=== PATIENT | male | born 1960 | race Caucasian/White ===

== ENCOUNTER 2017-03-17 18:42 | Emergency (ER) | payer MEDICAID, OTHER ==
--- NOTE | 2017-03-17 19:02 | UC ---
Neck Pain HPI - HPI Summary HPI Summary: 56 year old male presents with complains of spontaneous bruising on his legs with severe neck pain. I will send him to the ER to rule out a platelet disorder. - History of Current Complaint Chief Complaint: UCGeneralIllness Stated Complaint: NECK PAIN, AND BRUISING ON LEGS Time Seen by Provider: 03/17/17 18:53 - Allergies/Home Medications Allergies/Adverse Reactions: Allergies Allergy/AdvReac Type Severity Reaction Status Date / Time No Known Allergies Allergy Verified 01/15/16 13:27 Home Medications: Home Medications Ibuprofen [Advil] 200 mg PO Q6HR 03/17/17 [History Confirmed 03/17/17] PMH/Surg Hx/FS Hx/Imm Hx Previously Healthy: Yes - Surgical History Surgical History: Yes Surgery Procedure, Year, and Place: circumcision 2014-DETACHED RETINA FIXED IN 2013 (pt needs orbit xrays prior to mri to clear surgery/metallic body) - Family History Known Family History: Positive: Cardiac Disease - Social History Alcohol Use: None Substance Use Type: Marijuana Substance Use Comment - Amount & Last Used: every few days Smoking Status (MU): Never Smoked Tobacco Amount Used/How Often: 1/2 PDD X FEW YEARS Have You Smoked in the Last Year: No When Did the Patient Quit Smoking/Using Tobacco: 15 YEARS AGO - Immunization History Most Recent Influenza Vaccination: no Review Of Systems Constitutional: Positive: Negative Skin: Positive: Rash ENT: Positive: Negative Cardiovascular: Positive: Negative Gastrointestinal: Positive: Negative Genitourinary: Positive: Negative Musculoskeletal: Positive: Other: - neck pain Neurological: Positive: Negative All Other Systems Reviewed And Are Negative: Yes Physical Exam Triage Information Reviewed: Yes Vital Signs: Initial Vital Signs Temp 36.8 C 03/17/17 18:51 Pulse 69 03/17/17 18:51 Resp 18 03/17/17 18:51 Pulse Ox 98 03/17/17 18:51 Eye Exam: Normal ENT Exam: Normal Dental Exam: Normal Neck exam: Normal Neck: Positive: 1 Respiratory Exam: Normal Cardiovascular Exam: Normal Abdominal Exam: Normal Musculoskeletal: Positive: Other: - neck pain Neurological Exam: Normal Psychological Exam: Normal Skin: Positive: rashes Neck Pain Course/Dx - Differential Dx/Diagnosis Provider Diagnoses: spontaneous bruising. neck pain Discharge - Discharge Plan Condition: Stable Disposition: ADMITTED TO [facility] Referrals: Kathleen Angulo NP [Primary Care Provider] -
== END 2017-03-17 19:13 | disposition short-term general hospital (02) ==
LOC: UCEAST 18:42
DX: S10.93XA Contusion of unspecified part of neck, initial encounter (principal); M54.2 Cervicalgia; Z87.891 Personal history of nicotine dependence; X58.XXXA Exposure to other specified factors, initial encounter
CPT/HCPCS: 99212; G0463

== ENCOUNTER 2017-03-17 19:28 | Emergency (ER) | payer OTHER ==
[2017-03-17 19:34] VITALS: BP 145/85
[2017-03-17 22:42] LABS: Hematocrit 37 % (42-52); Hemoglobin 12.7 g/dl (14.0-18.0); Mean Corpuscular HGB Conc 34 g/dl (31-36); Mean Corpuscular Hemoglobin 31 pg (27-31); Mean Corpuscular Volume 91 fL (80-94); Mean Platelet Volume 7 um3 (7.4-10.4); Red Blood Count 4.06 10^6/ul (4.0-5.4); Red Cell Distribution Width 14 % (10.5-15)
[2017-03-17 22:58] LABS: Albumin 3.5 g/dL (3.2-5.2); Calcium 8.6 mg/dL (8.6-10.3); EGFR African American 105.5 (>60); Potassium 4.1 mmol/L (3.5-5.0); Total Bilirubin 0.6 mg/dL (0.2-1.0); Total Protein 6.5 g/dL (6.4-8.9)
[2017-03-17] MEDS ORDERED: predniSONE TAB* 20 MG PO ONE (23:07)
--- NOTE | 2017-03-17 23:07 | ED ---
Skin Complaint - HPI Summary HPI Summary: 56M presents with brownish rash that changed to red today. He states that he started to notice all what he thought were bruises across his arms and legs. He was seen at urgent care and sent here for blood work for platelet abnormality. He states upon arriving his rash changed to red splotches. He denies any pain or itching. He denies any fever. He denies any new products or medications. He denies being on blood thinners or every having this rash before. - History of Current Complaint Chief Complaint: EDRashSkinAbscess Time Seen by Provider: 03/17/17 21:14 Stated Complaint: RASH-SENT FROM [facility] Pain Intensity: 2 - Allergy/Home Medications Allergies/Adverse Reactions: Allergies Allergy/AdvReac Type Severity Reaction Status Date / Time No Known Allergies Allergy Verified 01/15/16 13:27 PMH/Surg Hx/FS Hx/Imm Hx Endocrine/Hematology History: Denies: Hx Diabetes, Hx Thyroid Disease Cardiovascular History: Denies: Hx Congestive Heart Failure, Hx Hypertension, Hx Pacemaker/ICD Respiratory History: Denies: Hx Asthma, Hx Chronic Obstructive Pulmonary Disease (COPD) GI History: Reports: Other GI Disorders - present hematemesis abd paian Denies: Hx Ulcer History: Denies: Hx Renal Disease Sensory History: Reports: Hx Contacts or Glasses - GLASSES Denies: Hx Hearing Aid Opthamlomology History: Reports: Hx Contacts or Glasses - GLASSES Neurological History: Reports: Hx Migraine - 20 YEARS AGO Psychiatric History: Denies: Hx Panic Disorder - Surgical History Surgery Procedure, Year, and Place: circumcision 2014-DETACHED RETINA FIXED IN 2013 (pt needs orbit xrays prior to mri to clear surgery/metallic body) Hx Anesthesia Reactions: No Infectious Disease History: No Infectious Disease History: Denies: Hx Clostridium Difficile, Hx Hepatitis, Hx Human Immunodeficiency Virus (HIV), Hx of Known/Suspected MRSA, Hx Shingles, Hx Tuberculosis, Hx Known/ Suspected VRE, Hx Known/Suspected VRSA, History Other Infectious Disease, Traveled Outside the [place] in Last 30 Days - Family History Known Family History: Positive: Cardiac Disease - Social History Alcohol Use: None Substance Use Type: Reports: Marijuana Substance Use Comment - Amount & Last Used: every few days Smoking Status (MU): Never Smoked Tobacco Amount Used/How Often: 1/2 PDD X FEW YEARS Have You Smoked in the Last Year: No Review of Systems Negative: Fever Negative: Chest Pain Negative: Shortness Of Breath Positive: Rash All Other Systems Reviewed And Are Negative: Yes Physical Exam Triage Information Reviewed: Yes Vital Signs On Initial Exam: Initial Vitals Temp Pulse Resp BP Pulse Ox 98.4 F 70 16 147/85 100 03/17/17 19:30 03/17/17 19:30 03/17/17 19:30 03/17/17 19:30 03/17/17 19:30 Vital Signs Reviewed: Yes Appearance: Positive: Well-Appearing Skin: Positive: Other - red macular rash that blanches across arms and legs Head/Face: Positive: Normal Head/Face Inspection Eyes: Positive: Normal, Conjunctiva Clear ENT: Positive: Normal ENT inspection, Pharynx normal, TMs normal Respiratory/Lung Sounds: Positive: Clear to Auscultation, Breath Sounds Present Cardiovascular: Positive: Normal, RRR Diagnostics - Vital Signs Vital Signs Temp Pulse Resp BP Pulse Ox 03/17/17 21:07 98.4 F 03/17/17 19:33 98.4 F 76 16 145/85 100 03/17/17 19:30 98.4 F 70 16 147/85 100 - Laboratory Lab Results: Lab Results 03/17/17 03/17/17 03/17/17 Range/Units 22:30 22:30 22:30 WBC 6.0 (3.5-10.8) 10^3/ul RBC 4.06 (4.0-5.4) 10^6/ul Hgb 12.7 L (14.0-18.0) g/dl Hct 37 L (42-52) % MCV 91 (80-94) fL MCH 31 (27-31) pg MCHC 34 (31-36) g/dl RDW 14 (10.5-15) % Plt Count 234 (150-450) 10^3/ul MPV 7 L (7.4-10.4) um3 Neut % (Auto) 60.3 (38-83) % Lymph % (Auto) 27.4 (25-47) % Ramsey % (Auto) 7.8 (1-9) % Eos % (Auto) 3.8 (0-6) % Baso % (Auto) 0.7 (0-2) % Absolute Neuts (auto) 3.6 (1.5-7.7) 10^3/ul Absolute Lymphs (auto) 1.6 (1.0-4.8) 10^3/ul Absolute Monos (auto) 0.5 (0-0.8) 10^3/ul Absolute Eos (auto) 0.2 (0-0.6) 10^3/ul Absolute Basos (auto) 0 (0-0.2) 10^3/ul Absolute Nucleated RBC 0 10^3/ul Nucleated RBC % 0 INR (Anticoag Therapy) 0.98 (0.89-1.11) APTT 31.1 (26.0-36.3) seconds Sodium 138 (133-145) mmol/L Potassium 4.1 (3.5-5.0) mmol/L Chloride 106 (101-111) mmol/L Carbon Dioxide 28 (22-32) mmol/L Anion Gap 4 (2-11) mmol/L BUN 19 (6-24) mg/dL Creatinine 0.95 (0.67-1.17) mg/dL Est GFR ( Amer) 105.5 (>60) Est GFR (Non-Af Amer) 82.0 (>60) BUN/Creatinine Ratio 20.0 (8-20) Glucose 113 H (70-100) mg/dL Calcium 8.6 (8.6-10.3) mg/dL Total Bilirubin 0.60 (0.2-1.0) mg/dL AST 35 (13-39) U/L ALT 41 (7-52) U/L Alkaline Phosphatase 90 (34-104) U/L Total Protein 6.5 (6.4-8.9) g/dL Albumin 3.5 (3.2-5.2) g/dL Globulin 3.0 (2-4) g/dL Albumin/Globulin Ratio 1.2 (1-3) Result Diagrams: 03/17/17 22:30 03/17/17 22:30 Lab Statement: Any lab studies that have been ordered have been reviewed, and results considered in the medical decision making process. Course/Dx - Course Course Of Treatment: 56M presents with brownish rash that changed to red today. He states that he started to notice all what he thought were bruises across his arms and legs. He was seen at urgent care and sent here for blood work for platelet abnormality. He states upon arriving his rash changed to red splotches. He denies any pain or itching. He denies any fever. He denies any new products or medications. He denies being on blood thinners or every having this rash before. labs normal. rash almost looks vascular vs hives? will try course of steriod and told to follow up with primary. patient understands and agrees with plan. - Differential Diagnoses - Skin Complaint Differential Diagnoses: Cellulitis, Contact Dermatitis, Viral Exanthem - Diagnoses Provider Diagnoses: Rash Discharge - Discharge Plan Condition: Good Disposition: HOME Prescriptions: predniSONE TAB* [Deltasone TAB*] 40 mg PO DAILY #8 tab Patient Education Materials: Acute Rash (ED) Referrals: Kathleen Angulo NP [Primary Care Provider] - Additional Instructions: Take steroid once a day for 5 days Follow up with primary Return to ED if develop any new or worsening symptoms
== END 2017-03-18 | disposition home or self-care (01) ==
LOC: ED 19:28
DX: R21 Rash and other nonspecific skin eruption (principal)
CPT/HCPCS: 36415; 80053; 85025; 85610; 85730; 86617; 86618; 99282; J7512

== ENCOUNTER 2017-04-12 23:10 | Emergency (ER) | payer OTHER ==
[2017-04-12] MEDS ORDERED: Al Hydrox/Mg Hydrox/Simet LIQ* 30 ML UDC PO ONE (23:41)
[2017-04-12] MEDS ORDERED: Lidocaine 2% VISCOUS* 15 ML UDC PO ONE (23:41)
[2017-04-13 01:27] LABS: Hematocrit 39 % (42-52); Hemoglobin 13.4 g/dl (14.0-18.0); Mean Corpuscular HGB Conc 34 g/dl (31-36); Mean Corpuscular Hemoglobin 31 pg (27-31); Mean Corpuscular Volume 91 fL (80-94); Mean Platelet Volume 8 um3 (7.4-10.4); Red Blood Count 4.31 10^6/ul (4.0-5.4); Red Cell Distribution Width 14 % (10.5-15); White Blood Count 6.8 10^3/ul (3.5-10.8)
[2017-04-13 01:42] LABS: Albumin 3.9 g/dL (3.2-5.2); BUN/Creatinine Ratio 18.4 (8-20); Calcium 9.8 mg/dL (8.6-10.3); EGFR African American 116.7 (>60); EGFR Non-African American 90.8 (>60); Globulin 2.9 g/dL (2-4); Potassium 3.8 mmol/L (3.5-5.0); Total Bilirubin 0.7 mg/dL (0.2-1.0); Total Protein 6.8 g/dL (6.4-8.9)
--- NOTE | 2017-04-13 01:51 | ED ---
Nadeen Concepcion Rebecca, scribed for Brice Harvey MD on 04/13/17 at 0057 . Abdominal Pain/Male - HPI Summary HPI Summary: Pt is a 56 y/o M who presents to ED c/o epigastric abd pain. Pain began at 2200 , waking him up from sleep. Pain is currently moderate, ranked 7/10 and characterized as burning with radiation up the esophagus. 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 Sx aggravated by food, alleviated by nothing. Prior to onset of sx, pt had taken a dose of Doxycycline with a cheese sandwich. He is on Doxycycline for Lyme Disease. He reports small, similar reactions to Doxycycline if he had not eaten. - History of Current Complaint Chief Complaint: EDAbdPain Stated Complaint: HEARTBURN Time Seen by Provider: 04/13/17 00:49 Hx Obtained From: Patient Onset/Duration: Lasting Hours, Still Present Severity Currently: Moderate Pain Intensity: 7 Pain Scale Used: 0-10 Numeric Location: Epigastric Radiates: Yes Radiates to: Other - Esophagus Character: Burning Aggravating Factor(s): Food Alleviating Factor(s): Nothing Associated Signs And Symptoms: Positive: Negative - Allergies/Home Medications Allergies/Adverse Reactions: Allergies Allergy/AdvReac Type Severity Reaction Status Date / Time No Known Allergies Allergy Verified 01/15/16 13:27 PMH/Surg Hx/FS Hx/Imm Hx Endocrine/Hematology History: Denies: Hx Diabetes, Hx Thyroid Disease Cardiovascular History: Denies: Hx Congestive Heart Failure, Hx Hypertension, Hx Pacemaker/ICD Respiratory History: Denies: Hx Asthma, Hx Chronic Obstructive Pulmonary Disease (COPD) GI History: Reports: Other GI Disorders - present hematemesis abd paian Denies: Hx Ulcer History: Denies: Hx Renal Disease Sensory History: Reports: Hx Contacts or Glasses - GLASSES Denies: Hx Hearing Aid Opthamlomology History: Reports: Hx Contacts or Glasses - GLASSES Neurological History: Reports: Hx Migraine - 20 YEARS AGO Psychiatric History: Denies: Hx Panic Disorder - Surgical History Surgery Procedure, Year, and Place: circumcision 2014-DETACHED RETINA FIXED IN 2013 (pt needs orbit xrays prior to mri to clear surgery/metallic body) Hx Anesthesia Reactions: No Infectious Disease History: Yes Infectious Disease History: Denies: Hx Clostridium Difficile, Hx Hepatitis, Hx Human Immunodeficiency Virus (HIV), Hx of Known/Suspected MRSA, Hx Shingles, Hx Tuberculosis, Hx Known/ Suspected VRE, Hx Known/Suspected VRSA, History Other Infectious Disease, Traveled Outside the [place] in Last 30 Days - Family History Known Family History: Positive: Cardiac Disease - Social History Alcohol Use: None Substance Use Type: Reports: Marijuana Substance Use Comment - Amount & Last Used: every few days Smoking Status (MU): Never Smoked Tobacco Amount Used/How Often: 1/2 PDD X FEW YEARS Have You Smoked in the Last Year: No Review of Systems Negative: Fever Positive: Abdominal Pain - Epigastric burning with radiation up the esophagus All Other Systems Reviewed And Are Negative: Yes Physical Exam Triage Information Reviewed: Yes Vital Signs On Initial Exam: Initial Vitals Temp 97.1 F 04/12/17 23:16 Vital Signs Reviewed: Yes Appearance: Positive: Well-Appearing, No Pain Distress Skin: Positive: Warm Head/Face: Positive: Normal Head/Face Inspection Eyes: Positive: OLLIE ENT: Positive: Hearing grossly normal Neck: Positive: Supple Respiratory/Lung Sounds: Positive: Clear to Auscultation, Breath Sounds Present Cardiovascular: Positive: RRR Abdomen Description: Positive: Nontender, Soft Bowel Sounds: Positive: Present Musculoskeletal: Positive: Strength/ROM Intact Neurological: Positive: Alert, Oriented to Person Place, Time Psychiatric: Positive: Affect/Mood Appropriate - [place] Coma Scale Coma Scale Total: 15 Diagnostics - Vital Signs Vital Signs Temp Pulse Resp BP Pulse Ox 04/12/17 23:18 97.6 F 59 20 165/103 100 04/12/17 23:16 97.1 F - Laboratory Result Diagrams: 04/13/17 01:14 04/13/17 01:14 Lab Statement: Any lab studies that have been ordered have been reviewed, and results considered in the medical decision making process. - EKG 2333 Cardiac Rate: Bradycardia - 54 bpm EKG Rhythm: Sinus Bradycardia EKG Interpretation: No STEMI Re-Evaluation - Re-Evaluation First Eval Re-Evaluation Time: 00:56 Change: Improved Comment: Sx have improved after medication. Abdominal Pain Fem Course/Dx - Course Assessment/Plan: Pt is a 56 y/o M who presents to ED c/o epigastric abd pain. Pain began at 2200, waking him up from sleep. Pain is currently moderate, ranked 7/10 and characterized as burning with radiation up the esophagus. 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 Sx aggravated by food, alleviated by nothing. Prior to onset of sx , pt had taken a dose of Doxycycline with a cheese sandwich. He is on Doxycycline for Lyme Disease. He reports small, similar reactions to Doxycycline if he had not eaten. EKG reveals no acute findings. WBC of 6.8. In the ED course, pt was administered Maalox and Xylocaine which improved sx. He will be D/C to home with Dx of abdominal pain and a follow up with his PCP. He understands and agrees. Elevated BP noted and advised to f/u with PCP. - Diagnoses Provider Diagnoses: Abdominal pain Discharge - Discharge Plan Condition: Stable Disposition: HOME Patient Education Materials: Acute Abdominal Pain (ED) Referrals: Kathleen Angulo NP [Primary Care Provider] - 3 Days Additional Instructions: Return to the ED for any returning or worsening symptoms. The documentation as recorded by the Nadeen abbasi Rebecca accurately reflects the service I personally performed and the decisions made by , Brice Harvey MD.
[2017-04-13 01:55] VITALS: BP 145/87
== END 2017-04-13 02:05 | disposition home or self-care (01) ==
LOC: ED 23:10
DX: R10.13 Epigastric pain (principal)
CPT/HCPCS: 36415; 80053; 83690; 85025; 93005; 99283; A9270-GY

== ENCOUNTER 2017-09-09 18:28 | Emergency (ER) | payer OTHER ==
[2017-09-09 19:07] VITALS: BP 144/53
--- NOTE | 2017-09-09 21:31 | UC ---
Luz Concepcion Abhishek, scribed for Jh Betts MD on 09/09/17 at 2051 . UC General HPI - HPI Summary HPI Summary: This patient is a 57 year old M presenting to [facility] with a chief complaint of hernia since 2 months. Pt states that he has had bloating and decreased stool production for the past 5 days. The pain is described as a sharp, shooting pain with movement. Pain is stated to be a pressure at rest. Pt states he has been hearing gurgling when pressure is applied to the area of the hernia. The patient rates the pain 10/10 in severity. Symptoms aggravated by coughing and walking. Symptoms alleviated by nothing. Patient denies decreased appetite. - History of Current Complaint Chief Complaint: UCGI Stated Complaint: HERNIATED MUSCLE IN GROIN AND BOWEL MOVEMENTS Time Seen by Provider: 09/09/17 20:06 Hx Obtained From: Patient Onset/Duration: Gradual Onset - hernia - 2 months decreased stool production. Decreased stool production - past 5 days. Timing: Constant Pain Intensity: 10 Character: sharp and shooting pain when aggravated. Aggravating: coughing and walking Alleviating: nothing Associated Signs & Symptoms: Positive: Other - decreased appetite - Allergy/Home Medications Allergies/Adverse Reactions: Allergies Allergy/AdvReac Type Severity Reaction Status Date / Time No Known Allergies Allergy Verified 09/09/17 19:07 Home Medications: Home Medications NK [No Home Medications Reported] 09/09/17 [History Confirmed 09/09/17] PMH/Surg Hx/FS Hx/Imm Hx Cardiovascular History: Other - hypotension. Negative cardiac disease. Other Cardiovascular History: . - Surgical History Surgical History: Yes Surgery Procedure, Year, and Place: circumcision 2014-DETACHED RETINA FIXED IN 2013 (pt needs orbit xrays prior to mri to clear surgery/metallic body) - Family History Known Family History: Positive: Hypertension, Other - colon cancer - Social History Alcohol Use: None Substance Use Type: None Substance Use Comment - Amount & Last Used: every few days Smoking Status (MU): Never Smoked Tobacco Amount Used/How Often: 1/2 PDD X FEW YEARS Have You Smoked in the Last Year: No When Did the Patient Quit Smoking/Using Tobacco: 15 YEARS AGO - Immunization History Most Recent Influenza Vaccination: no Review of Systems Constitutional: Negative Skin: Negative Eyes: Negative ENT: Negative Respiratory: Negative Cardiovascular: Negative Gastrointestinal: Other - bloating and decreased stool production. Negative decreased appetite. Genitourinary: Negative Motor: Negative Neurovascular: Negative Musculoskeletal: Other: - hernia in the left inguinal region Neurological: Negative Psychological: Negative All Other Systems Reviewed And Are Negative: Yes Physical Exam Triage Information Reviewed: Yes Vital Signs: Initial Vital Signs Temp 98.1 F 09/09/17 19:00 Pulse 75 09/09/17 19:00 Resp 18 09/09/17 19:00 BP 144/53 09/09/17 19:00 Pulse Ox 97 09/09/17 19:00 - Additional Comments General: well-appearing, no pain distress Skin: warm, color reflects adequate perfusion, dry Head: normal Eyes: EOMI, OLLIE ENT: normal Neck: supple, nontender Respiratory: CTA, breath sounds present Cardiovascular: RRR Abdomen: soft, nontender Bowel: present Musculoskeletal: normal, strength/ROM intact, Left inguinal region, no hernia palpated at this time Neurological: normal, sensory/motor intact, A&O x3 Psychological: affect/mood appropriate Course/Dx - Course Course Of Treatment: THE LEFT INGUINAL HERNIA IS NOT PALPABLE ON EXAM; IT IS REDUCED AT THIS TIME. POSITIVE BOWEL SOUNDS, PATIENT IS PASSING STOOL AND FLAUS , NO ABDOMINAL PAIN AT THIS TIME. WE DISCUSSED HAVING A CT ABD/PELVIS WITH BOTH IV AND PO CONTRAST FOR OPTIMAL FURTHER EVALUATION OF HIS CONDITION. THIS IS NOT AVAILABLE HERE AT THE CLINIC AT THIS TIME. PATIENT DECLINED GOING TO THE ED AT THIS TIME; HE PLANNS ON FOLLOWING UP WITH HIS PMD FOR THIS. HE WILL GO TO THE ED RIGHT AWAY WITH ANY WORSENING OF HIS CONDITION. - Differential Dx - Multi-Symptom Provider Diagnoses: abdominal pain,. left inguinal hernia Discharge - Discharge Plan Condition: Stable Disposition: HOME Patient Education Materials: Inguinal Hernia (ED), Abdominal Pain (ED) Referrals: [facility] [Provider Group] Adis Serrano MD [Medical Doctor] - Kathleen Angulo NP [Primary Care Provider] - Additional Instructions: FOLLOW UP WITH YOUR PRIMARY CARE DOCTOR AND SURGERY. GO TO THE EMERGENCY DEPARTMENT FOR ANY WORSENING OF YOUR CONDITION; PAIN, VOMITING, YOU ARE NOT PASSING STOOL OR FLATUS, FEVER OR QUESTIONS OR CONCERNS. The documentation as recorded by the Luz abbasi Abhishek accurately reflects the service I personally performed and the decisions made by , Jh Betts MD.
== END 2017-09-09 21:02 | disposition home or self-care (01) ==
LOC: UCEAST 18:28
DX: R10.32 Left lower quadrant pain (principal); K40.90 Unilateral inguinal hernia, without obstruction or gangrene, not specified as recurrent; I95.9 Hypotension, unspecified; Z87.891 Personal history of nicotine dependence
CPT/HCPCS: 99211; G0463

== ENCOUNTER 2017-10-24 09:33 | Day surgery (SDC) | payer OTHER ==
[~2017-10-24 09:33] MED LIST: Buffered Lidocaine 0.9% SYRIN* 5 ML/SYR SYRINGE INTRADERM ONE; Famotidine IV* 10 MG/ML 2 ML (20 mg) IV ONE
[2017-10-24] MEDS ORDERED: Buffered Lidocaine 0.9% SYRIN* 5 ML/SYR SYRINGE ONE (09:35)
[2017-10-24] MEDS ORDERED: ceFAZolin 2 GM in 100 MLS NS (*) BAG IVPB ONE (09:35)
[2017-10-24] MEDS ORDERED: ceFAZolin 1 GM in Dextrose (*) 1 GM/50 ML BAG IVPB ONE (09:35)
[2017-10-24] MEDS ORDERED: Ketorolac INJ* 30 MG/ML 1 ML VIAL ONE ×2 (09:35→10:36)
[2017-10-24] MEDS ORDERED: Famotidine IV* 10 MG/ML 2 ML (20 mg) ONE (09:35)
[2017-10-24] MEDS ORDERED: Propofol* 10 MG/ML 20 ML BTL IV PUSH ONE ×2 (10:36→12:52)
[2017-10-24] MEDS ORDERED: Midazolam* 1 MG/ML 5 ML VIAL (5 MG) ONE (10:36)
[2017-10-24] MEDS ORDERED: Ondansetron INJ* 2 MG/ML VIAL ONE (10:36)
[2017-10-24] MEDS ORDERED: fentaNYL* 50 MCG/ML 2 ML VIAL (100 MCG VIAL) ONE (10:36)
[2017-10-24] MEDS ORDERED: Naloxone* 0.4 MG/ML 1 ML VIAL IV PRN (11:23)
[2017-10-24] MEDS ORDERED: oxyCODONE TAB* 5 MG TAB PO PRN (11:23)
[2017-10-24] MEDS ORDERED: DiMENhydriNATE IV* 50 MG/ML VIAL IV PUSH PRN (11:23)
[2017-10-24] MEDS ORDERED: HYDROmorphone INJ* 1 MG/ML CARPUJECT SYRINGE IV PRN (11:23)
[2017-10-24] MEDS ORDERED: Acetaminophen TAB* 325 MG PO PRN (11:23)
[2017-10-24] MEDS ORDERED: Bupivacaine 0.5% SDV PF* 10-30ML VIAL ONE (11:42)
[2017-10-24] MEDS ORDERED: Lidocaine 1% MPF wEPI 200,000* 30 ML SDV ONE (11:42)
[2017-10-24] MEDS ORDERED: Lidocaine 2% PF * 5 ML VIAL ONE (12:23)
[2017-10-24 14:07] VITALS: BP 119/78
--- NOTE | 2017-10-25 06:39 | OP ---
CC: Kathleen Curry NP * DATE OF OPERATION: 10/24/17 - SDS DATE OF : 60 SURGEON: Brice White MD SLAT BASKET MAKER: Macie Escalante NP ANESTHESIOLOGIST: Radhika Stewart MD ANESTHESIA: LMAC anesthesia. PRE-OP DIAGNOSIS: Left inguinal hernia. POST-OP DIAGNOSIS: Left inguinal hernia. OPERATIVE PROCEDURE: Open repair of left inguinal hernia with mesh. DESCRIPTION OF PROCEDURE: The patient was supine on the operative table. After adequate intravenous sedation, compression stockings, Rasta Hugger warmer, and intravenous antibiotics, the left groin was clipped and draped with antiseptic, draped in sterile fashion. Local infiltrative anesthesia was administered. An approximately 3-inch incision was created and carried down to the tissue layers to the external oblique, which was opened in the direction of its fibers. Cord structures were encircled, tended upwards. There was an indirect space hernia, which was dissected free and reduced and a cone mesh plug was placed into the internal ring, sutured there with 2-0 Vicryl. Second piece of mesh was placed over the inguinal floor, sutured at the tubercle at the inguinal ligament at the transverse abdominis and the tails were split, brought around the cord structures and tacked down laterally. External oblique was closed over top with 2-0 Vicryl, Davian's with 3-0 Vicryl, skin with 4-0 Prolene followed by sterile dressing. He tolerated the procedure well, was awakened and brought to Recovery in good condition. No complications. No drains. No pathologic specimens. Sponge and instrument counts were correct. Estimated blood loss was 10 mL. [id number]/[facility] #: [id number] [facility]
== END 2017-10-24 14:30 | disposition home or self-care (01) ==
LOC: OR 09:33
PROVIDERS: ATTEND Surgery
DX: K40.90 Unilateral inguinal hernia, without obstruction or gangrene, not specified as recurrent (principal); J45.909 Unspecified asthma, uncomplicated; M19.90 Unspecified osteoarthritis, unspecified site
CPT/HCPCS: C1781; J0690; J1885; J2001; J2250; J2405; J2704; J3010

== ENCOUNTER 2017-10-27 13:26 | Emergency (ER) | payer OTHER ==
--- OUTSIDE RECORDS SUMMARY | 2017-10-27 13:48 | XMS REPORT ---
:1960 External Reference #:[id number] Author Organization [facility] Address [address] [place] [id number] Phone [phone] Care Team Providers Name Role Phone Jeni Leonard NP Care Team Information Speed Winder Unavailable Payers Type Date Identification Numbers Payment Provider Subscriber Medicaid Expires: Policy Number: [id number] Medicaid/Computer Liz Abdi Donna 2011 Science Group Name: 1 1 [address] PayID: [id number] [place] [address] Commercial Effective: Policy Number: [facility] Abdi Donna 2011 [id number] Med Expires: 2015 PayID: [id number] [place] [address] Medigap Part B Expires: Policy Number: Medicaid/Computer Liz Abdi Donna 2015 [id number] Science Group Name: 1 1 [address] PayID: [id number] [place] [address] Commercial Effective: Policy Number: [facility] Abdi Donna 2015 [id number] Med Expires: 2016 PayID: [id number] [address] [place] [address] Medigap Part B Effective: Policy Number: Medicaid/Computer Liz S Donna 2016 [id number] Science Expires: 2016 Group Name: 1 1 [address] PayID: [id number] [place] [address] Commercial Effective: Policy Number: [facility] Abdi Donna 2016 [id number] PayID: [id number] [address] [place] [address] Problems Date Description Provider Status Onset: 09/11/2011 Essential hypertension Peyton Cuevas M.D. Active Family History Date Family Member(s) Problem(s) Comments : (age 55 Father due to COPD Years) Onset: (age 81 Mother Cancer, Colon Years) Onset: (age 87 Mother Stroke Years) Onset: (age 88 Mother Hip Fractures B Years) Siblings 2 First Brother CAD stent placed age 59 carotid endarterectomy age 54 First Brother Hypercholesterolemia First Sister Hypercholesterolemia Social History Type Date Description Comments Marital Status Significant Other Lives With Female Partner Lives With Daughter Pets 2 cats Smoking Patient has never smoked Allergies, Adverse Reactions, Alerts Date Description Reaction Status Severity Comments 09/11/2011 NKDA active Medications Medication Date Status Form Strength Qnty SIG Indications Ordering Provider Ventolin HFA 10/17 Active Aerosol 108(90Bas 1unit 2 puffs J45.998 e) s four times Shortle, mcg/Act a day as [employer] needed wheezing Doxycycline 03/20 Hx Capsules 100mg 56cap 1 tab by A69.20 Kathleen Hyclate s mouth twice Kev, - a day x 28 [employer] No Active 12/04 Hx Unknown Medications /2016 - 03/20 Ciprodex 08/27 Hx Suspension 0.3-0.1% 7.500 4 drops ml into right Kev, - and left [employer] 12/04 ear twice day x 5 days Dulera 01/23 Hx Aerosol 100-5mcg/ 2 puff Act twice a day Kev, - [employer] 12/04 Meloxicam 03/22 Hx Tablets 7.5mg 60tab 1 - 2 by M25.18 Kathleen s mouth daily Kev, - for back [employer] 12/04 pain, take with food Albenza 02/10 Hx Tablets 200mg 4tabs 2 by mouth Shawnti /2014 x 1 dose Betty Thomas, - with food, [employer] 03/23 repeat in weeks as needed as directed Cyclobenzaprine 07/22 Hx Tablets 5mg 60tab 1-2 by 599.89 Kathleen HCL s mouth three Kev, - times a day [employer] 01/12 for muscle /2015 spasm, may cause drowsiness Prednisone 07/13 Hx Tablets 20mg 14tab take 2 tabs 845.09 s by mouth Kev, - every day x [employer] 01/12 7 days Montelukast 01/22 Hx Tablets 10mg 30tab 1 tablet by J45.998 Kathleen Sodium s mouth at [facility], - bedtime [employer] 12/04 Fluticasone 01/22 Hx Suspension 50mcg/Act 16gm 2 sprays J45.998 Kathleen Propionate each Kev, - nostril [employer] 12/04 Albenza 12/29 Hx Tablets 200mg 4tabs 2 po x 1, December repeat Kev, - in 2 weeks. [employer] 01/22 Amoxicillin 08/28 Hx Tablets 875mg 20tab 1 tablet 382.9 s bid x 10 Kev, - days [employer] 01/22 Ciprofloxacin 07/23 Hx Tablets 250mg 10tab 1 po bid 599.0 Shawnti HCL s for urine Betty Thomas, - infection [employer] 01/22 Ventolin HFA 01/27 Hx Aerosol 108(90Bas 1unit 2 puffs J45.998 e) s four times Kev, - mcg/Act a day as [employer] 12/04 needed wheezing Albenza 03/31 Hx Tablets 200mg 4tabs 2 po x 1 128.9 wnt dose with Betty Thomas, - food, [employer] 01/22 repeat in weeks prn as directed Mebendazole 03/28 Hx Chewtabs 100mg 2unit one po now 128.9 Shawnti s and repeat Betty Thomas, - in 2 weeks [employer] 03/31 Ventolin HFA 01/10 Hx Aerosol 108(90Bas 1unit 2 puffs qid 493.90 Peyton /2012 e) mcg/ac s prn Brando - toya Cuevas, 01/27 Tj /2012 Pulmicort 01/10 Hx Aerosol 90mcg/Act 1unit 2 puff J45.998 Kathleen Sergeyer /2011 s twice a day Kev, - during [employer] 12/04 allergy 2017 season Azithromycin 01/10 Hx Tablets 250mg 6tabs 2 po qd x 1 493.90 Peyton /2012 day, then 1 K.W. - po qd Mason, 01/22 M.DGian /2013 Immunizations CPT Code Status Date Vaccine Lot # [id number] Given 01/11/2012 Pneumovax 23 (PPSV23) 65+ years or high risk 2 to [id number] 64 year old [address] Given 08/31/2011 Tdap (Adacel) Vital Signs Date Vital Result Comment 10/17/2017 Weight 251.00 lb Weight in kg's 113.854 BP Systolic 142 mmHg BP Diastolic 92 mmHg Heart Rate 63 /min Body Temperature 96.5 F Respiratory Rate 18 /min O2 % BldC Oximetry 96 % 09/25/2017 Weight 252.00 lb Weight in kg's 114.307 BP Systolic 124 mmHg BP Diastolic 74 mmHg Heart Rate 68 /min Body Temperature 96.9 F Respiratory Rate 16 /min O2 % BldC Oximetry 98 % 03/20/2017 Weight 258.00 lb Weight in kg's 117.029 BP Systolic 120 mmHg BP Diastolic 80 mmHg Heart Rate 64 /min Body Temperature 98.6 F Respiratory Rate 14 /min 12/04/2016 Weight 245.00 lb Weight in kg's 111.132 BP Systolic 140 mmHg BP Diastolic 88 mmHg Heart Rate 81 /min Body Temperature 97.7 F Respiratory Rate 16 /min O2 % BldC Oximetry 96 % 10/09/2016 Weight 252.00 lb Weight in kg's 114.307 BP Systolic 130 mmHg BP Diastolic 80 mmHg Heart Rate 64 /min Body Temperature 97.3 F Respiratory Rate 12 /min 09/10/2016 Weight 252.00 lb Weight in kg's 114.307 BP Systolic 128 mmHg BP Diastolic 76 mmHg Heart Rate 80 /min Body Temperature 97.8 F Respiratory Rate 16 /min O2 % BldC Oximetry 98 % 08/27/2016 Weight 255.00 lb Weight in kg's 115.668 BP Systolic 132 mmHg BP Diastolic 86 mmHg Heart Rate 51 /min Body Temperature 97.5 F Respiratory Rate 16 /min O2 % BldC Oximetry 98 % 01/24/2016 Weight 246.00 lb Weight in kg's 111.586 BP Systolic 116 mmHg BP Diastolic 76 mmHg Heart Rate 90 /min Body Temperature 98.0 F Height 73 inches 6'1" BMI (Body Mass Index) 32.5 kg/m2 O2 % BldC Oximetry 97 % 11/23/2015 Weight 245.00 lb with boots Weight in kg's 111.132 BP Systolic 126 mmHg BP Diastolic 80 mmHg Heart Rate 74 /min 03/22/2015 Weight 244.00 lb Weight in kg's 110.678 BP Systolic 114 mmHg BP Diastolic 70 mmHg Heart Rate 76 /min 02/18/2015 Weight 238.00 lb Weight in kg's 107.957 BP Systolic 132 mmHg BP Diastolic 74 mmHg Heart Rate 68 /min Body Temperature 98.1 F 01/12/2015 Weight 240.00 lb Weight in kg's 108.864 BP Systolic 122 mmHg BP Diastolic 80 mmHg Heart Rate 68 /min Body Temperature 97.3 F O2 % BldC Oximetry 96 % 07/22/2014 Weight 278.00 lb Weight in kg's 126.101 BP Systolic 144 mmHg BP Diastolic 88 mmHg Heart Rate 100 /min Body Temperature 97.4 F 07/13/2014 Weight 271.00 lb Weight in kg's 122.926 BP Systolic 136 mmHg BP Diastolic 84 mmHg Heart Rate 67 /min Body Temperature 97.1 F O2 % BldC Oximetry 98 % 06/25/2014 Weight 275.00 lb Weight in kg's 124.740 BP Systolic 132 mmHg BP Diastolic 82 mmHg Heart Rate 88 /min Body Temperature 96.8 F O2 % BldC Oximetry 97 % 01/22/2014 Weight 271.00 lb Weight in kg's 122.926 BP Systolic 132 mmHg BP Diastolic 96 mmHg Heart Rate 67 /min Body Temperature 96.6 F O2 % BldC Oximetry 96 % 08/28/2013 Weight 273.00 lb Weight in kg's 123.833 BP Systolic 110 mmHg BP Diastolic 70 mmHg Heart Rate 76 /min 07/23/2013 Weight 271.00 lb Weight in kg's 122.926 BP Systolic 136 mmHg BP Diastolic 90 mmHg Heart Rate 76 /min Body Temperature 97.7 F Height 73 inches 6'1" BMI (Body Mass Index) 35.8 kg/m2 08/22/2012 Weight 262.00 lb Weight in kg's 118.843 BP Systolic 140 mmHg BP Diastolic 90 mmHg Heart Rate 84 /min 03/28/2012 Weight 261.00 lb Weight in kg's 118.390 BP Systolic 130 mmHg BP Diastolic 90 mmHg Heart Rate 108 /min Body Temperature 98.3 F 01/11/2012 Weight 260.00 lb Weight in kg's 117.936 BP Systolic 150 mmHg BP Diastolic 90 mmHg Heart Rate 84 /min Body Temperature 98.1 F 12/07/2011 Weight 262.00 lb Weight in kg's 118.843 BP Systolic 124 mmHg BP Diastolic 78 mmHg Heart Rate 72 /min Body Temperature 98.2 F 09/11/2011 Weight 260.00 lb Weight in kg's 117.936 BP Systolic 140 mmHg BP Diastolic 80 mmHg Heart Rate 80 /min Body Temperature 97.8 F Height 73.5 inches 6'1.50" BMI (Body Mass Index) 33.8 kg/m2 Results Test Date Test Result H/L Range Note Order 10/17/2017 Spirometry Simple <pending> Order 10/17/2017 Spirometry Simple <pending> Comp Metabolic Panel 04/13/2017 Sodium 135 mmol/L 133-145 Potassium 3.8 mmol/L 3.5-5.0 Chloride 106 mmol/L 101-111 Co2 Carbon Dioxide 26 mmol/L 22-32 Anion Gap 3 mmol/L 2-11 Glucose 105 mg/dL High 70-100 Blood Urea Nitrogen 16 mg/dL 6-24 Creatinine 0.87 mg/dL 0.67-1.17 BUN/Creatinine Ratio 18.4 8-20 Calcium 9.8 mg/dL 8.6-10.3 Total Protein 6.8 g/dL 6.4-8.9 Albumin 3.9 g/dL 3.2-5.2 Globulin 2.9 g/dL 2-4 Albumin/Globulin Ratio 1.3 1-3 Total Bilirubin 0.70 mg/dL 0.2-1.0 Alkaline Phosphatase 72 U/L 34-104 Alt 23 U/L 7-52 Ast 26 U/L 13-39 Egfr Non- 90.8 >60 Egfr 116.7 >60 1 Laboratory test finding 04/13/2017 Lipase 17 U/L 11.0-82.0 CBC Auto Diff 04/13/2017 White Blood Count 6.8 10^3/uL 3.5-10.8 Red Blood Count 4.31 10^6/uL 4.0-5.4 Hemoglobin 13.4 g/dL Low 14.0-18.0 Hematocrit 39 % Low 42-52 Mean Corpuscular Volume 91 fL 80-94 Mean Corpuscular Hemoglobin 31 pg 27-31 Mean Corpuscular HGB Conc 34 g/dL 31-36 Red Cell Distribution Width 14 % 10.5-15 Platelet Count 203 10^3/uL 150-450 Mean Platelet Volume 8 um3 7.4-10.4 Abs Neutrophils 3.8 10^3/uL 1.5-7.7 Abs Lymphocytes 2.1 10^3/uL 1.0-4.8 Abs Monocytes 0.6 10^3/uL 0-0.8 Abs Eosinophils 0.2 10^3/uL 0-0.6 Abs Basophils 0 10^3/uL 0-0.2 Abs Nucleated RBC 0 10^3/uL Granulocyte % 55.9 % 38-83 Lymphocyte % 31.6 % 25-47 Monocyte % 8.7 % 1-9 Eosinophil % 3.2 % 0-6 Basophil % 0.6 % 0-2 Nucleated Red Blood Cells % 0 Lyme Western Blot 03/17/2017 Lyme Disease IgG Ab WB Negative Negative Lyme Disease IgG Bands Present p41, p23, kDa Lyme Disease IgM Ab WB Positive Negative Lyme Disease IgM Bands Present p41, p39, p23, kDa Lyme Disease Interpretation See Comment 2 CBC Auto Diff 03/17/2017 White Blood Count 6.0 10^3/uL 3.5-10.8 Red Blood Count 4.06 10^6/uL 4.0-5.4 Hemoglobin 12.7 g/dL Low 14.0-18.0 Hematocrit 37 % Low 42-52 Mean Corpuscular Volume 91 fL 80-94 Mean Corpuscular Hemoglobin 31 pg 27-31 Mean Corpuscular HGB Conc 34 g/dL 31-36 Red Cell Distribution Width 14 % 10.5-15 Platelet Count 234 10^3/uL 150-450 Mean Platelet Volume 7 um3 Low 7.4-10.4 Abs Neutrophils 3.6 10^3/uL 1.5-7.7 Abs Lymphocytes 1.6 10^3/uL 1.0-4.8 Abs Monocytes 0.5 10^3/uL 0-0.8 Abs Eosinophils 0.2 10^3/uL 0-0.6 Abs Basophils 0 10^3/uL 0-0.2 Abs Nucleated RBC 0 10^3/uL Granulocyte % 60.3 % 38-83 Lymphocyte % 27.4 % 25-47 Monocyte % 7.8 % 1-9 Eosinophil % 3.8 % 0-6 Basophil % 0.7 % 0-2 Nucleated Red Blood Cells % 0 Inr/Protime 03/17/2017 Inr 0.98 0.89-1.11 Laboratory test finding 03/17/2017 Partial Thrombo Time 31.1 seconds 26.0 -36.3 PTT Laboratory test finding 03/17/2017 Lyme Disease Serology Positive Negative 3 Comp Metabolic Panel 03/17/2017 Sodium 138 mmol/L 133-145 Potassium 4.1 mmol/L 3.5-5.0 Chloride 106 mmol/L 101-111 Co2 Carbon Dioxide 28 mmol/L 22-32 Anion Gap 4 mmol/L 2-11 Glucose 113 mg/dL High 70-100 Blood Urea Nitrogen 19 mg/dL 6-24 Creatinine 0.95 mg/dL 0.67-1.17 BUN/Creatinine Ratio 20.0 8-20 Calcium 8.6 mg/dL 8.6-10.3 Total Protein 6.5 g/dL 6.4-8.9 Albumin 3.5 g/dL 3.2-5.2 Globulin 3.0 g/dL 2-4 Albumin/Globulin Ratio 1.2 1-3 Total Bilirubin 0.60 mg/dL 0.2-1.0 Alkaline Phosphatase 90 U/L 34-104 Alt 41 U/L 7-52 Ast 35 U/L 13-39 Egfr Non- 82.0 >60 Egfr 105.5 >60 4 Herpes Simplex Type 10/09/2016 Herpes Simplex Virus I Positive Negative 1&2 Igg IgG AB Herpes Simplex Virus II IgG AB Negative Negative 5 Laboratory test 10/09/2016 Syphillis Igg W/Reflex Nonreactive Nonreactive 6 finding RPR HIV 1/2 AB Evaluation 10/09/2016 HIV 1 2 Antibody Nonreactive Nonreactive 7 GC/Chlamydia Amplified 10/09/2016 Chlamydia trachomatis Negative Negative Rna Rna Neisseria gonorrhoeae (GC) Rna Negative Negative Urine DIP 09/10/2016 Leukocytes ++ Neg Urine Nitrites NEG Neg Urobilinogen NORM Norm Total Protein, Urine NEG Neg Urine pH 5 5-6 Urine Blood NEG Neg Specific Bowie 1.015 1.01-1.02 Urine Ketones NEG Neg Urine Bilirubin NEG Neg Urine Glucose NORM Norm Laboratory test finding 09/10/2016 Glucose By Moniter 116 High 78-110 Laboratory test finding 07/18/2015 Troponin I 0.00 ng/mL <0.03 8 CBC Auto Diff 07/18/2015 White Blood Count 5.5 10^3/uL 4.8-10.8 Red Blood Count 4.58 10^6/uL 4.0-5.4 Hemoglobin 14.4 g/dL 14.0-18.0 Hematocrit 43 % 42-52 Mean Corpuscular Volume 94 fL 80-94 Mean Corpuscular Hemoglobin 31 pg 27-31 Mean Corpuscular HGB Conc 33 g/dL 31-36 Red Cell Distribution Width 14 % 10.5-15 Platelet Count 208 10^3/uL 150-450 Mean Platelet Volume 8 um3 7.4-10.4 Abs Neutrophils 2.6 10^3/uL 1.5-7.7 Abs Lymphocytes 2.1 10^3/uL 1.0-4.8 Abs Monocytes 0.4 10^3/uL 0-0.8 Abs Eosinophils 0.3 10^3/uL 0-0.6 Abs Basophils 0 10^3/uL 0-0.2 Abs Nucleated RBC 0 10^3/uL Granulocyte % 47.5 % 38-83 Lymphocyte % 37.9 % 25-47 Monocyte % 7.8 % 1-9 Eosinophil % 6.0 % 0-6 Basophil % 0.8 % 0-2 Nucleated Red Blood Cells % 0.1 Laboratory test finding 07/18/2015 Lactic Acid 1.3 mmol/L 0.5-2.2 Comp Metabolic Panel 07/18/2015 Sodium 139 mmol/L 133-145 Potassium 4.0 mmol/L 3.5-5.0 Chloride 107 mmol/L 101-111 Co2 Carbon Dioxide 27 mmol/L 22-32 Anion Gap 5 mmol/L 2-11 Glucose 115 mg/dL High 70-100 Blood Urea Nitrogen 12 mg/dL 6-24 Creatinine 0.86 mg/dL 0.67-1.17 BUN/Creatinine Ratio 14.0 8-20 Calcium 9.2 mg/dL 8.6-10.3 Total Protein 6.7 g/dL 6.4-8.9 Albumin 4.1 g/dL 3.2-5.2 Globulin 2.6 g/dL 2-4 Albumin/Globulin Ratio 1.6 1-3 Total Bilirubin 0.50 mg/dL 0.2-1.0 Alkaline Phosphatase 72 U/L 34-104 Alt 17 U/L 7-52 Ast 22 U/L 13-39 Egfr Non- 92.3 >60 Egfr 118.7 >60 9 Laboratory test finding 07/18/2015 Magnesium 1.9 mg/dL 1.9-2.7 Troponin I 0.00 ng/mL <0.03 10 D Dimer Quantitative < 200 ng/mL Less Than 230 11 Laboratory test finding 01/12/2015 TSH (Thyroid Stim Horm) 0.92 ?IU/mL 0.34-5.60 Laboratory test finding 08/10/2014 PSA Screening 1.268 ng/mL 0-4.0 12 Urine DIP 07/22/2014 Specific Bowie 1.01 1.01-1.02 Urine pH 6 5-6 Leukocytes + Neg Urine Nitrites NEG Neg Total Protein, Urine NEG Neg Urine Glucose NORM Norm Urine Ketones NEG Neg Urobilinogen NORM Norm Urine Bilirubin NEG Neg Urine Blood NEG Neg Comp Metabolic Panel 07/13/2014 Sodium 138 mmol/L 133-145 Potassium 4.2 mmol/L 3.5-5.0 13 Chloride 105 mmol/L 101-111 Co2 Carbon Dioxide 26 mmol/L 22-32 Anion Gap 7 mmol/L 2-11 Glucose 100 mg/dL 70-100 Blood Urea Nitrogen 14 mg/dL 6-24 Creatinine 0.85 mg/dL 0.67-1.17 BUN/Creatinine Ratio 16.5 8-20 Calcium 9.3 mg/dL 8.6-10.3 Total Protein 7.0 g/dL 6.4-8.9 Albumin 4.4 g/dL 3.2-5.2 Globulin 2.6 g/dL 2-4 Albumin/Globulin Ratio 1.7 1-3 Total Bilirubin 0.70 mg/dL 0.2-1.0 Alkaline Phosphatase 76 U/L 34-104 Alt 17 U/L 7-52 Ast 20 U/L 13-39 Egfr Non- 93.9 >60 Egfr 120.8 >60 14 Laboratory test finding 07/13/2014 Uric Acid 6.1 mg/dL 4.4-7.6 CBC Auto Diff 07/13/2014 White Blood Count 7.0 10^3/uL 4.8-10.8 Red Blood Count 4.94 10^6/uL 4.0-5.4 Hemoglobin 15.2 g/dL 14.0-18.0 Hematocrit 45 % 42-52 Mean Corpuscular Volume 91 fL 80-94 Mean Corpuscular Hemoglobin 31 pg 27-31 Mean Corpuscular HGB Conc 34 g/dL 31-36 Red Cell Distribution Width 14 % 10.5-15 Platelet Count 233 10^3/uL 150-450 Mean Platelet Volume 8 um3 7.4-10.4 Abs Neutrophils 3.9 10^3/uL 1.5-7.7 Abs Lymphocytes 2.3 10^3/uL 1.0-4.8 Abs Monocytes 0.5 10^3/uL 0-0.8 Abs Eosinophils 0.3 10^3/uL 0-0.6 Abs Basophils 0 10^3/uL 0-0.2 Abs Nucleated RBC 0 10^3/uL Granulocyte % 55.9 % 38-83 Lymphocyte % 32.4 % 25-47 Monocyte % 6.9 % 1-9 Eosinophil % 4.3 % 0-6 Basophil % 0.5 % 0-2 Nucleated Red Blood Cells % 0.1 Urine DIP 07/23/2013 Leukocytes + Neg Urine Nitrites neg Neg Urine pH 5 5-6 Total Protein, Urine neg Neg Urine Glucose norm Norm Urine Ketones neg Neg Urobilinogen norm Norm Urine Bilirubin neg Neg Urine Blood trace Neg Specific Bowie 1.02 1.01-1.02 Urine Culture And Sensitivities 07/23/2013 Urine Culture (SEE NOTE) 15 Urine DIP 08/22/2012 Leukocytes + Neg Urine Nitrites NEG Neg Urine pH 5 5-6 Total Protein, Urine NEG Neg Urine Glucose NORM Norm Urine Ketones NEG Neg Urobilinogen NORM Norm Urine Bilirubin NEG Neg Urine Blood NEG Neg Specific Bowie N/A Low 1.01-1.02 Urine Culture And 08/22/2012 Urine Culture (SEE NOTE) 16 Sensitivities GC/Chlamydia Amplified Rna 08/22/2012 GC/Chlamydia Rna (SEE NOTE) 17 Surgical Pathology 11/06/2011 Surgical Pathology 18 <SEE NOTE> Urine DIP 09/11/2011 Leukocytes NEG Neg Urine Nitrites NEG Neg Urine pH 7 High 5-6 Total Protein, Urine TRACE Neg Urine Glucose NORM Norm Urine Ketones NEG Neg Urobilinogen NORM Norm Urine Bilirubin NG Neg Urine Blood NEG Neg Specific Bowie NA Low 1.01-1.02 1 Because ethnic data is not always readily available, this report includes an eGFR for both -Americans and non- Americans. The National Kidney Disease Education Program (NKDEP) does not endorse the use of the MDRD equation for patients that are not between the ages of 18 and 70, are , have extremes of body size, muscle mass, or nutritional status, or are non- or non-. According to the National Kidney Foundation, irrespective of diagnosis, the stage of the disease is based on the level of kidney function: Stage Description GFR(mL/min/1.73 m(2)) 1 Kidney damage with normal or decreased GFR 90 2 Kidney damage with mild decrease in GFR 60-89 3 Moderate decrease in GFR 30-59 4 Severe decrease in GFR 15-29 5 Kidney failure <15 (or dialysis) 2 Consistent with early infection with Borrelia burgdorferi. A new serum specimen should be submitted in 14-21 days to demonstrate seroconversion of IgG. IgM blot criteria is of diagnostic utility only during the first 4 weeks of early Lyme disease. ADDITIONAL INFORMATION CDC criteria require >=5 bands for IgG or >=2 bands for IgM for the Immunoblot to be considered positive. Bands (e.g.,p41) may be detected in patients without Lyme disease, and patterns not meeting the CDC criteria should be interpreted with caution. Immunoblot should be ordered only on specimens that are positive or equivocal by a FDA-licensed Lyme disease antibody screening test (e.g., EIA). Test Performed by: [place] [address] 3 Not diagnostic. Supplemental testing ordered by reflex. Test Performed by: [place] [address] 4 Because ethnic data is not always readily available, this report includes an eGFR for both -Americans and non- Americans. The National Kidney Disease Education Program (NKDEP) does not endorse the use of the MDRD equation for patients that are not between the ages of 18 and 70, are , have extremes of body size, muscle mass, or nutritional status, or are non- or non-. According to the National Kidney Foundation, irrespective of diagnosis, the stage of the disease is based on the level of kidney function: Stage Description GFR(mL/min/1.73 m(2)) 1 Kidney damage with normal or decreased GFR 90 2 Kidney damage with mild decrease in GFR 60-89 3 Moderate decrease in GFR 30-59 4 Severe decrease in GFR 15-29 5 Kidney failure <15 (or dialysis) 5 Test Performed by: [place] [address] Rn Hemodialysis Charge: Jh Canales II, M.D., Ph.D. 6 Warning: A positive result is not useful for establishing a diagnosis of syphilis. In most situations, such a result may reflect a prior treated infection; a negative result can exclude a diagnosis of syphilis except for incubating or early primary disease. 7 It is recognized that currently available assays for the detection of antibodies to HIV-1 and/or HIV-2 may not detect all infected individuals. HIV antibodies may be undetectable in some stages of the infection and in some clinical conditions. The performance of this assay has not been established for populations of infants or children. Assayed by Chemiluminescence Microparticle Immunoassay on the Siemens Advia Centaur CP. Values obtained with different methods or kits cannot be used interchangeably.The diagnostic specificity of the ADVIA Centaur 1/O/2 Enhanced assay in the low risk population was 99.90% (6052/6058) with a 95% confidence interval of 99.78 to 99.96%. 8 Reference Range and Interpretation: TnI (ng/mL) Interpretation Less Than 0.03 ng/mL Not supportive of diagnosis of ME 0.03 - 0.50 ng/mL Indeterminate: suggest serial studies if clinically indicated. Greater than 0.5 ng/mL Consistent with diagnosis of ME 9 Because ethnic data is not always readily available, this report includes an eGFR for both -Americans and non- Americans. The National Kidney Disease Education Program (NKDEP) does not endorse the use of the MDRD equation for patients that are not between the ages of 18 and 70, are , have extremes of body size, muscle mass, or nutritional status, or are non- or non-. According to the National Kidney Foundation, irrespective of diagnosis, the stage of the disease is based on the level of kidney function: Stage Description GFR(mL/min/1.73 m(2)) 1 Kidney damage with normal or decreased GFR 90 2 Kidney damage with mild decrease in GFR 60-89 3 Moderate decrease in GFR 30-59 4 Severe decrease in GFR 15-29 5 Kidney failure <15 (or dialysis) 10 Reference Range and Interpretation: TnI (ng/mL) Interpretation Less Than 0.03 ng/mL Not supportive of diagnosis of ME 0.03 - 0.50 ng/mL Indeterminate: suggest serial studies if clinically indicated. Greater than 0.5 ng/mL Consistent with diagnosis of ME 11 Please note: The following may produce a false positive D Dimer test: - Rheumatoid factor greater than 60 IU/ml - Plasma hemoglobin greater than 0.05 gm/dl - Bilirubin greater than 50 mg/dl - Lipids greater than 1000 mg/dl - FDP greater than 20 ug/ml 12 Serum levels of PSA measured using the [employer] DXI Hybritech immunoassay should not be interpreted as absolute evidence of the presence or absence of disease. The PSA value should be used in conjunction with other pertinent clinical diagnostic procedures. The values obtained with different assay methods or kits cannot be used interchangeably. 13 Potassium reference range changed effective 06/20/14 14 Because ethnic data is not always readily available, this report includes an eGFR for both -Americans and non- Americans. The National Kidney Disease Education Program (NKDEP) does not endorse the use of the MDRD equation for patients that are not between the ages of 18 and 70, are , have extremes of body size, muscle mass, or nutritional status, or are non- or non-. According to the National Kidney Foundation, irrespective of diagnosis, the stage of the disease is based on the level of kidney function: Stage Description GFR(mL/min/1.73 m(2)) 1 Kidney damage with normal or decreased GFR 90 2 Kidney damage with mild decrease in GFR 60-89 3 Moderate decrease in GFR 30-59 4 Severe decrease in GFR 15-29 5 Kidney failure <15 (or dialysis) 15 RUN DATE: 07/25/13 [facility] LAB LIVE PAGE 1 RUN TIME: 1031 [address] [facility], [place], [place] [address] Specimen Inquiry Name: LIZ THOMPSON : [address]: Eric Thomas NP Acct: [id number] Unit: [id number] AGE: 53 Location: [facility] Re07/23/13 SEX: M Status: REG REF SPEC: [id number] RASHAUN: 07/23/13-[address]: Eric Thomas NP REQ: [id number] RECD: 07/23/13 STATUS: COMP _ SOURCE: URINE SPDESC: ORDERED: Urine Culture QUERIES: Medent Number [id number] Procedure Result Verified Site Urine Culture Final 07/25/13- 1031 ML No Growth Day 2 (<1,000 CFU/mL) END OF REPORT * ML=Testing performed at Main Lab DEPARTMENT OF PATHOLOGY, [facility] [employer] [place], [place] [address] Wilmer Navarro M.D. Director [facility] Permit #[id number] RUN DATE: 08/24/12 [facility] LAB LIVE PAGE 1 RUN TIME: 6362 [facility] [employer] [place], [place] [address] Specimen Inquiry Name: LIZ THOMPSON : 1960 Attend Dr: Kathleen Angulo NP Acct: [id number] Unit: [id number] AGE: 52 Location: [facility] Re08/22/12 SEX: M Status: REG REF SPEC: [id number] RASHAUN: 08/22/[address]: Kathleen Angulo NP REQ: [id number] RECD: 08/22/12 STATUS: COMP _ SOURCE: URINE SPDESC: ORDERED: Urine Culture QUERIES: Medent Number [id number] Procedure Result Verified Site Urine Culture Final 08/24/12- 1612 ML No Growth Day 2 (<1,000 CFU/mL) END OF REPORT * ML=Testing performed at Main Lab DEPARTMENT OF PATHOLOGY, [facility] [employer] [place], [place] [address] Wilmer Navarro M.D. Director [facility] Permit #[id number] RUN DATE: 08/26/12 [facility] LAB LIVE PAGE 1 RUN TIME: [address] [place] [address] Specimen Inquiry Name: LIZ THOMPSON : [address]: Kathleen Angulo NP Acct: [id number] Unit: [id number] AGE: 52 Location: [facility] Re08/22/12 SEX: M Status: REG REF SPEC: [id number] RASHAUN: 08/22/12-[address]: Kathleen Angulo NP REQ: [id number] RECD: 08/22/12 STATUS: COMP _ SOURCE: URINE SPDESC: ORDERED: LEATHA/Christian RNA QUERIES: Medent Number [id number] Procedure Result Verified Site Chlamydia Trachomatis RNA Final 08/26/12- 1340 ML NEGATIVE for Chlamydia trachomatis rRNA GC (N. gonorrhoeae) RNA Final 08/26/12- 1340 ML NEGATIVE for Neisseria gonorrhoeae rRNA A negative result does not preclude the presence of a C. trachomatis or N. gonorrhoeae infection because results are dependent on adequate specimen collection, absence of inhibitors, and sufficient rRNA to be detected. Test results may be affected by improper specimen collection, improper storage, technical error, or specimen mixup. Limitations of the Procedure: The Aptima Combo 2 Assay is not intended for the evaluation of suspected sexual abuse or for other medico-legal indications. For those patients for whom a false positive result may have adverse psychosocial impact, the [facility] recommends retesting by a method using an alternate technology. Therapeutic failure or success cannot be determined with the Aptima Combo 2 Assay since nucleic acid may persist following appropriate antimicrobial therapy. Results from the Aptima Combo 2 Assay should be interpreted in conjunction with other laboratory and clinical data available to the clinican. CONTINUED ON NEXT PAGE * ML=Testing performed at Main Lab DEPARTMENT OF PATHOLOGY, [facility] [employer] [facility] [place], [place] [address] Wilmer Navarro M.D. Director [facility] Permit #[id number] RUN DATE: 08/26/12 [facility] LAB LIVE PAGE 2 RUN TIME: 1340 [facility] [employer] [place], [place] [address] Specimen Inquiry Patient: LIZ THOMPSON [id number] (Continued) Specimen: [id number] Collected: 08/22/12 Received: 08/22/12 (Continued) Procedure Result Verified Site GC (N. gonorrhoeae) RNA Final (continued) 08/26/12- 0335 Performance characteristics for detecting C. trachomatis and N. gonorrhoeae are derived from high prevalence populations. Positive results in low prevalence populations should be interpreted carefully with the understanding that the likelihood of a false positive may be higher than a true positive. END OF REPORT * ML=Testing performed at Main Lab DEPARTMENT OF PATHOLOGY, [address] [place] [address] Wilmer Navarro M.D. Director [facility] Permit #[id number] ---- RUN DATE: 11/07/11 [facility] LIVE PAGE 1 RUN TIME: 1521 Specimen Inquiry RUN USER: INTERFACE -- Name: DONNALIZ Status: REG REF Re11/06/11 Age/Sex: 51/M Unit#: [id number] [facility] : 60 -- Specimen: [id number] Spec Date:11/06/11- Subm Dr: Jose Garduno MD Spec Type: SURGICAL P Received:11/06/11-1248 Copies to: Peyton Choudhury And seth TENA SPECIMEN 1) MID RIGHT COLON POLYP HOT SNARE 2) BIOPSY DISTAL TRANSVERSE NODULE 3) BIOPSY SPLENIC FLEXURE NODULE 4) RECTAL POLYP AT 76 CM. HOT SNARE 5) RECTAL POLYP AT 14 CM. HOT SNARE HISTORY POST-OP DIAGNOSIS: Colonoscopy to cecum. Diverticulosis. Five polyps. CLINICAL INFORMATION: Screening. GROSS DESCRIPTION 1) The specimen is received in formalin labelled Liz S. Donna, Mid Right Colon Polyp, and consists of two howe, soft tissue fragments measuring 0.3 x 0.2 x 0.1 cm. Submitted entirely, one cassette. 2) The specimen is received in formalin labelled Ilz S. Donna, Biopsy Distal Transverse Nodule, and consists of a howe, soft tissue fragment measuring 0.3 x 0.3 x 0.2 cm. Submitted entirely, one cassette. 3) The specimen is received in formalin labelled Liz S. Donna, Biopsy Splenic Flexure Nodule, and consists of a howe, soft tissue fragment measuring 0.7 x 0.2 x 0.2 cm. Submitted entirely, one cassette. 4) The specimen is received in formalin labelled Liz S. Donna, Rectal Polyp at 16 cm., and consists of a howe, soft tissue fragment measuring 0.6 x 0.3 x 0.2 cm. Submitted entirely, one cassette. 5) The specimen is received in formalin labelled Liz S. Donna, Rectal Polyp at 14 cm., and consists of two, howe, soft tissue fragments measuring 0.4 x 0.2 x 0.2 cm. in aggregate. Submitted entirely, one cassette. DIAGNOSIS 1) Colon, mid right, biopsy: A. Tubular adenoma. B. No high grade dysplasia or malignancy. 2) Colon, distal transverse, biopsy: A. Tubular adenoma. -- DEPARTMENT OF PATHOLOGY, [address] [place] [address] [facility] Permit #[id number] Wilmer Navarro M.D. Director Jasmin Ceballos M.D. Intake Man Dir nasim -- -- RUN DATE: 11/07/11 [facility] NMI LIVE PAGE 2 RUN TIME: 1521 Specimen Inquiry RUN USER: INTERFACE -- Name: RONNI THOMPSONYulia Abdi Status: REG REF Re11/06/11 Age/Sex: 51/M Unit#: [id number] Location: END : 60 -- -- CONTINUED -- DIAGNOSIS (Continued) B. No high grade dysplasia or malignancy. 3) Colon, splenic flexure, biopsy: A. Tubular adenoma. B. No high grade dysplasia or malignancy. 4) Colon, 16 cm., biopsy: A. Tubular adenoma. B. No high grade dysplasia or malignancy. 5) Colon, 14 cm., biopsy: A. Tubular adenoma. B. No high grade dysplasia or malignancy. Signed Electronically by: WILMER NAVARRO MD 11/07/11 1516 -- -- DEPARTMENT OF PATHOLOGY, [address] [place] [address] [facility] Permit #[id number] Wilmer Navarro M.D. Director Jasmin Ceballos M.D. Intake Man Dir nasim -- Procedures Date CPT Code Description Status Comment 10/17/2017 80225 Spirometry Completed 02/05/2015 Colonoscopy Completed Normal limited exam with diverticulosis. (2012-five polyps removed) Encounters Type Date Location Provider CPT E/M Dx Office Visit 09/25/2017 11:30a Main Office Kathleen Angulo, SCIENCE INTER[employer]C 18903 K40.30 R05 Office Visit 03/20/2017 10:45a Main Office Kathleen Tonykelvey [employer] 29777 A69.20 Office Visit 12/04/2016 3:30p Main Office Kathleen Tonykelvey [employer] 76851 R07.9 Office Visit 10/09/2016 10:45a Main Office Orion Jeannette MATTHEW, [employer]C 62175 Z11.3 Office Visit 09/10/2016 2:45p [place] [address] Z71.1 L29.9 Office Visit 08/27/2016 2:15p Main Office Kathleen Kev [employer]C 33236 R23.8 Office Visit 01/24/2016 2:15p Main Office Kathleen TonyESVIN malloryP-C 86576 J45.998 Office Visit 11/23/2015 10:45a Main Office Kathleen Tonyshawnee [employer] INTER[employer]C 10419 M25.562 Office Visit 03/22/2015 3:45p Main Office Kathleen Tonykelvey [employer]C 74433 719.88 Office Visit 02/18/2015 11:30a Main Office Kathleen Ton[place] [employer]C 44377 719.88 Office Visit 01/12/2015 11:30a Main Office Kathleen Tonykelvey [employer] 72186 784.1 995.3 V18.19 Office Visit 07/22/2014 10:15a Main Office Kathleen Tonys[place]nee [employer] 72859 599.89 724.2 Office Visit 07/13/2014 9:45a Main Office Kathleen [place] [employer]C 68144 845.09 Office Visit 06/25/2014 10:30a Main Office Kathleen [place] [employer]C 68596 845.09 786.2 Office Visit 01/22/2014 9:45a Main Office Kathleen Tonys[place]nee [employer] 39171 493.90 995.3 Office Visit 08/28/2013 9:30a Main Office Kathleen Angulo [employer] 10583 382.9 719.97 Office Visit 07/23/2013 11:45a Main Office Marcianorenodennis Thomas, [facility] 52564 599.0 Office Visit 08/22/2012 4:00p Main Office Kathleen Angulo [facility] 29689 599.89 Office Visit 03/28/2012 3:00p Main Office Marcianorenodennis Thomas [facility] 20513 128.9 Office Visit 01/11/2012 3:15p Main Office Peyton Cuevas M.D. 03416 493.90 401.9 V03.82 Office Visit 12/07/2011 11:00a Main Office Peyton Cuevas M.D. 48956 461.8 Office Visit 09/11/2011 11:30a Main Office Peyton Cuevas M.D. 29383 V70.0 V58.32 782.2 401.9 Plan of Care 10/17/2017 - Jeni Leonard, STEPHANE05 CoughNew Xrays:Chest, 2 Views(PA & Lateral)Comments:No acute concerns today.Pre and Post bronchodilator spirometry completed and finding consistent withasthma. Patient states he has albuterol inhaler at home that he uses infrequently. Reordered. Discussed med, action, side effects, proper useDue to chemical exposure, respiratory symptoms, and symptomsconsistent with possible sleep apnea, patient will be referred to Dr Avila. Educated on new/worsening symptoms and when to call/return. Patient stated understanding and agrees to planFollow up:schedule chest xray refer to Dr Avila for evaluation due to chronic chemical exposure and possibleCOPD/ Asthma
[2017-10-27 14:06] VITALS: BP 128/78
--- NOTE | 2017-10-27 18:34 | ED ---
Bobbi Concepcion Gabriel, scribed for Harpal Ward MD on 10/27/17 at 1351 . GI/ HPI - HPI Summary HPI Summary: This patient is a 57 year old M presenting to [facility] with a chief complaint of swelling and bruising in the suprapubic region s/p hernia surgery. The patient rates the pain 5/10 in severity. Patient reports testicular swelling and pain. Patient denies fever, dysuria, and n/v. - History of Current Complaint Chief Complaint: EDGeneral Time Seen by Provider: 10/27/17 13:37 Stated Complaint: TESTICULAR SWELLING Hx Obtained From: Patient Onset/Duration: Still Present Timing: Constant Severity: Mild Current Severity: Mild Pain Intensity: 4 Location of Pain: Suprapubic Additional Locations for Males: Penis, Scrotum, Testicles Associated Signs and Symptoms: Positive: Negative - fever, dysuria, n/v - Allergy/Home Medications Allergies/Adverse Reactions: Allergies Allergy/AdvReac Type Severity Reaction Status Date / Time No Known Allergies Allergy Verified 10/18/17 13:53 Home Medications: Home Medications Multivitamins/Minerals TAB* [Theragran/minerals TAB*] 1 tab PO DAILY 10/27/17 [ History Confirmed 10/27/17] PMH/Surg Hx/FS Hx/Imm Hx Endocrine/Hematology History: Denies: Hx Diabetes, Hx Thyroid Disease Cardiovascular History: Reports: Hx Hypertension - HX OF- STATES NO MEDICATION FOR-STATES IMPROVED WITH LIFESTYLE CHANGE Denies: Hx Congestive Heart Failure, Hx Pacemaker/ICD Respiratory History: Reports: Hx Asthma - PRN INHALER Denies: Hx Chronic Obstructive Pulmonary Disease (COPD) GI History: Reports: Other GI Disorders - present hematemesis abd paian Denies: Hx Ulcer History: Denies: Hx Renal Disease Musculoskeletal History: Reports: Hx Arthritis - BACK Sensory History: Denies: Hx Contacts or Glasses, Hx Hearing Aid Opthamlomology History: Denies: Hx Contacts or Glasses Neurological History: Reports: Hx Migraine - HX OF 15+YEARS AGO Psychiatric History: Denies: Hx Panic Disorder - Surgical History Surgery Procedure, Year, and Place: circumcision 2014-DETACHED RETINA FIXED IN 2013 (pt needs orbit xrays prior to mri to clear surgery/metallic body). REMOVAL OF POLYPS Hx Anesthesia Reactions: No Infectious Disease History: No Infectious Disease History: Denies: Hx Clostridium Difficile, Hx Hepatitis, Hx Human Immunodeficiency Virus (HIV), Hx of Known/Suspected MRSA, Hx Shingles, Hx Tuberculosis, Hx Known/ Suspected VRE, Hx Known/Suspected VRSA, History Other Infectious Disease, Traveled Outside the [place] in Last 30 Days - Family History Known Family History: Positive: Cardiac Disease, Hypertension, Other - colon cancer - Social History Alcohol Use: None Substance Use Type: Reports: None Substance Use Comment - Amount & Last Used: every few days Smoking Status (MU): Never Smoked Tobacco Amount Used/How Often: 1/2 PDD X FEW YEARS Have You Smoked in the Last Year: No Review of Systems Negative: Fever Positive: Abdominal Pain - suprapubic. Negative: Vomiting, Nausea Positive: other - testicular swelling and pain . Negative: dysuria All Other Systems Reviewed And Are Negative: Yes Physical Exam - Summary Physical Exam Summary: VITAL SIGNS: Reviewed. GENERAL: Patient is a well-developed and nourished male who is lying comfortable in the stretcher. Patient is not in any acute respiratory distress. HEAD AND FACE: Normocephalic and atraumatic. EYES: PERRLA, EOMI x 2, No injected conjunctiva. EARS: Hearing grossly intact. Ear canals and tympanic membranes are WNL. MOUTH: Oropharynx within normal limits. NECK: Supple, trachea is midline, no adenopathy, no JVD. CHEST: Symmetric, no tenderness at palpation LUNGS: Clear to auscultation bilaterally. No wheezing or crackles. CVS: RRR, S1 and S2 present, no murmurs or gallops appreciated. ABDOMEN: Soft, non-tender. No signs of distention. Positive bowel sounds. No rebound no guarding, and no masses palpated. No abdominal bruit or pulsations. Incision site is clean dry and intact EXTREMITIES: FROM in all major joints, no edema, no cyanosis or clubbing. NEURO: Alert and oriented x 3. No acute neurological deficits. Speech is normal. SKIN: Dry and warm : unircumcised penis, both testicles are descended. No masses are appreciated. Positive cremasteric reflex. Some ecchymoisis and swelling in the pelvic area. Testicles are non tender. Triage Information Reviewed: Yes Vital Signs On Initial Exam: Initial Vitals Temp Pulse Resp BP Pulse Ox 96.9 F 73 18 131/82 100 10/27/17 13:28 10/27/17 13:28 10/27/17 13:28 10/27/17 13:28 10/27/17 13:28 Vital Signs Reviewed: Yes Diagnostics - Vital Signs Vital Signs Temp Pulse Resp BP Pulse Ox 10/27/17 13:28 96.9 F 73 18 131/82 100 - Laboratory Lab Statement: Any lab studies that have been ordered have been reviewed, and results considered in the medical decision making process. GIGU Course/Dx - Course Assessment/Plan: We discussed patient care with Dr. Serrano and they recommended discharging the patient. I discussed what Dr. Serrano said with the patient and answered all questions. The patient was instructed to return to emergency room for any new or worsening symptoms. Patient will be discharged and follow up from PCP. The patient is agreeable with this plan. I discussed all the findings and test results with the patient. Patient was instructed to return to the emergency room immediately if any of the symptoms return or worsens. Plan of care was discussed with the patient and understands and agrees. All questions were answered at patient satisfaction. There were no further complaints or concerns. Lung exam before discharge: CTA B/L. Good air exchange. No wheezing or crackles heard. CVS: S1 and S2 present. No murmurs appreciated. Patient is alert and oriented x 3. Patient is hemodynamically stable. Patient will be discharged home with follow up PCP in the next 2-3 days - Diagnoses Provider Diagnoses: Bruise of testicle, nontraumatic - Physician Notifications Discussed Care Of Patient With: Adis Serrano Time Discussed With Above Provider: 13:57 Instructed by Provider To: Other - Discharge Discharge - Discharge Plan Condition: Stable Disposition: HOME Patient Education Materials: Testicle Pain (ED), Scrotal Pain (ED) Referrals: Jon Cartwright MD [Primary Care Provider] - 4 Days Additional Instructions: RETURN TO EMERGENCY DEPARTMENT FOR ANY NEW OR WORSENING SYMPTOMS The documentation as recorded by the Bobbi abbasi Gabriel accurately reflects the service I personally performed and the decisions made by , Harpal Ward MD.
== END 2017-10-27 14:05 | disposition home or self-care (01) ==
LOC: ED 13:26
DX: N50.1 Vascular disorders of male genital organs (principal); Z98.890 Other specified postprocedural states
CPT/HCPCS: 99282

== ENCOUNTER 2018-07-01 11:21 | Emergency (ER) | payer OTHER ==
--- NOTE | 2018-07-01 11:47 | UC ---
Back Pain HPI - HPI Summary HPI Summary: 58 yo male presents with neck and back pain since yesterday. He tells me that yesterday he was jumping on the trampoline for about an hour with his grandkids. About 1 hour after that he developed a sore neck and mid/low back that felt stiff. He woke up today and his pain is worse and he feels more stuff. He has not taken anything OTC for his discomfort. He denies specific injury, hitting his head/neck, or falling. Denies numbness, tingling, saddle anesthesia, or loss of bowel/bladder control. - History of Current Complaint Chief Complaint: UCGeneralIllness Stated Complaint: NECK/BODY PAIN Time Seen by Provider: 07/01/18 11:47 Hx Obtained From: Patient Onset/Duration: Sudden Onset Timing: Constant Severity Initially: Moderate Severity Currently: Moderate Pain Intensity: 6 Pain Scale Used: 0-10 Numeric - Allergies/Home Medications Allergies/Adverse Reactions: Allergies Allergy/AdvReac Type Severity Reaction Status Date / Time No Known Allergies Allergy Verified 07/01/18 11:40 PMH/Surg Hx/FS Hx/Imm Hx - Additional Past Medical History Additional PMH: None - Surgical History Surgical History: Yes Surgery Procedure, Year, and Place: circumcision 2014-DETACHED RETINA FIXED IN 2013 (pt needs orbit xrays prior to mri to clear surgery/metallic body). REMOVAL OF POLYPS - Family History Known Family History: Positive: Cardiac Disease, Hypertension, Other - colon cancer - Social History Occupation: Employed Full-time Lives: With Family Alcohol Use: None Substance Use Type: None Substance Use Comment - Amount & Last Used: every few days Smoking Status (MU): Never Smoked Tobacco Amount Used/How Often: 1/2 PDD X FEW YEARS Have You Smoked in the Last Year: No When Did the Patient Quit Smoking/Using Tobacco: 15 YEARS AGO - Immunization History Most Recent Influenza Vaccination: no Review of Systems All Other Systems Reviewed And Are Negative: Yes Constitutional: Positive: Negative Skin: Positive: Negative Respiratory: Positive: Negative Cardiovascular: Positive: Negative Gastrointestinal: Positive: Negative Genitourinary: Positive: Negative Neurovascular: Positive: Negative Musculoskeletal: Positive: Other: - Neck and back pain Neurological: Positive: Negative Psychological: Positive: Negative Physical Exam - Summary Physical Exam Summary: GENERAL: NAD. WDWN. No pain distress. SKIN: No rashes, sores, lesions, or open wounds. NECK: Supple. FROM. Nontender. No lymphadenopathy. CHEST: CTAB. No r/r/w. No accessory muscle use. Breathing comfortably and in no distress. CV: RRR. Without m/r/g. Pulses intact. Cap refill <2seconds MSK: Mild TTP over trapezius and generalized paraspinal muscles without specific vertebral tenderness. Cervical spine: FROM with mild pain. Lumbar spine : Pain with flexion and extension of spine. Positive SLR b/l for low back pain without radiation. Strength 5/5 B/L UEs and LEs including dorsiflexion and plantar flexion. FROM B/L LEs. No edema. NEURO: Alert. Sensations intact B/L UEs C4-T1 and LEs L3-S1. PSYCH: Age appropriate behavior. Triage Information Reviewed: Yes Vital Signs: Initial Vital Signs Temp 98.6 F 07/01/18 11:34 Pulse 74 07/01/18 11:34 Resp 18 07/01/18 11:34 BP 133/76 07/01/18 11:34 Pulse Ox 98 07/01/18 11:34 Vital Signs Reviewed: Yes Back Pain Course/Dx - Course Course Of Treatment: Cervical spine XR: IMPRESSION: 1. SLIGHTLY LIMITED EXAM. 2. STRAIGHTENING OF THE CERVICAL SPINE. 3. MODERATE TO SEVERE DEGENERATIVE DISC DISEASE AT THE C5-C6 AND C6-C7 LEVELS. Lumbar spine XR: IMPRESSION: DEGENERATIVE DISC DISEASE AND OSTEOARTHRITIS. Suspect muscle spasm/strain. Pt says he is feeling better with toradol. He was offered flexeril, but declined and wishes to take tylenol and ibuprofen. Advised to apply heat and f/u prn. - Differential Dx/Diagnosis Provider Diagnoses: Cervical strain. Low back strain Discharge - Sign-Out/Discharge Documenting (check all that apply): Patient Departure All imaging exams completed and their final reports reviewed: Yes - Discharge Plan Condition: Stable Disposition: HOME Patient Education Materials: Muscle Strain (ED) Referrals: Jon Cartwright MD [Primary Care Provider] - Additional Instructions: If you develop a fever, shortness of breath, chest pain, new or worsening symptoms - please call your PCP or go to the ED. Your blood pressure was mildly elevated at todays visit. Please see your primary provider within 4 weeks for recheck and re-evaluation. 1) Please try taking ibuprofen 600-800mg every 6-8hours as needed for pain. 2) Apply heat to your areas of pain to help relax the muscles - Billing Disposition and Condition Condition: STABLE Disposition: Home
[2018-07-01] MEDS ORDERED: Ketorolac INJ* 60 MG/2 ML VIAL IM ONE (11:57)
[2018-07-01 13:08] VITALS: BP 116/83
== END 2018-07-01 13:06 | disposition home or self-care (01) ==
LOC: UCEAST 11:21
DX: S16.1XXA Strain of muscle, fascia and tendon at neck level, initial encounter (principal); S39.012A Strain of muscle, fascia and tendon of lower back, initial encounter; X58.XXXA Exposure to other specified factors, initial encounter; Y93.44 Activity, trampolining; Y92.017 Garden or yard in single-family (private) house as the place of occurrence of the external cause; Y99.8 Other external cause status
CPT/HCPCS: 72050; 72110; 96372; 99211; G0463; J1885

== ENCOUNTER 2019-03-06 22:32 | Emergency (ER) | payer OTHER ==
[2019-03-06 22:48] VITALS: BP 127/74
== END 2019-03-07 04:06 | disposition left against medical advice (07) ==
LOC: ED 22:32
DX: Z53.21 Procedure and treatment not carried out due to patient leaving prior to being seen by health care provider (principal)
CPT/HCPCS: 99282

== ENCOUNTER 2019-03-22 18:21 | Emergency (ER) | payer OTHER ==
[2019-03-22 18:45] VITALS: BP 142/89
[2019-03-22] MEDS ORDERED: Erythromycin OPTH OINT* APPLIC OINT RIGHT EYE ONE (19:13)
--- NOTE | 2019-03-22 19:32 | UC ---
Eye Complaint HPI - HPI Summary HPI Summary: RIGHT EYE REDNESS AND IRRITATION FOR A COUPLE OF DAYS. PATIENTS SWAM IN A POOL THAT HAD A LOT OF DEBRIS IN IT. HE ALSO WAS CHOPPING WOOD AND DOING A LOT OF OUTDOOR ACTIVITIES. THIS MORNING HIS RIGHT EYE WAS CRUSTED SHUT. HE DENIES ANY VISUAL DISTURBANCES. NO HEADACHE, DIZZINESS OR NAUSEA. DOES NOT WEAR CONTACT LENSES. NO FB SENSATION. - History of Current Complaint Chief Complaint: UCEye Stated Complaint: EYE IRRITATION Time Seen by Provider: 03/22/19 18:50 Hx Obtained From: Patient Onset/Duration: Gradual Onset, Lasting Days, Still Present Timing: Constant Severity Initially: Moderate Severity Currently: Moderate Pain Intensity: 5 Pain Scale Used: 0-10 Numeric Location of Injury: Conjunctiva - RIGHT Aggravating Factor(s): Nothing Alleviating Factor(s): Nothing Associated Signs And Symptoms: Positive: Drainage (Clear) - Allergies/Home Medications Allergies/Adverse Reactions: Allergies Allergy/AdvReac Type Severity Reaction Status Date / Time No Known Allergies Allergy Verified 03/22/19 18:38 PMH/Surg Hx/FS Hx/Imm Hx Cardiovascular History: Hypertension Respiratory History: Asthma - Surgical History Surgical History: Yes Surgery Procedure, Year, and Place: circumcision 2014-DETACHED RETINA FIXED IN 2013 (pt needs orbit xrays prior to mri to clear surgery/metallic body). REMOVAL OF POLYPS - Family History Known Family History: Positive: Cardiac Disease, Hypertension, Other - colon cancer - Social History Alcohol Use: None Substance Use Type: None Substance Use Comment - Amount & Last Used: every few days Smoking Status (MU): Never Smoked Tobacco Amount Used/How Often: 1/2 PDD X FEW YEARS Have You Smoked in the Last Year: No When Did the Patient Quit Smoking/Using Tobacco: 15 YEARS AGO - Immunization History Most Recent Influenza Vaccination: no Review of Systems All Other Systems Reviewed And Are Negative: Yes Constitutional: Positive: Negative Eyes: Positive: Drainage, Eye Redness Respiratory: Positive: Negative Cardiovascular: Positive: Negative Gastrointestinal: Positive: Negative Physical Exam Triage Information Reviewed: Yes Appearance: Well-Appearing, No Pain Distress, Well-Nourished Vital Signs: Initial Vital Signs Temp 98.9 F 03/22/19 18:39 Pulse 75 03/22/19 18:39 Resp 18 03/22/19 18:39 BP 142/89 03/22/19 18:39 Pulse Ox 95 03/22/19 18:39 Vital Signs Reviewed: Yes Eyes: Positive: Conjunctiva Inflamed - RIGHT, Other: - RIGHT EYE CHEMOSIS WITH CRUST AT EYELIDS. PERRL, EOMI. SITTING COMFORATABLY WITH EYE OPEN. ENT: Positive: Hearing grossly normal Neck: Positive: Supple, Nontender, No Lymphadenopathy Respiratory: Positive: No respiratory distress, No accessory muscle use Cardiovascular: Positive: Pulses Normal Abdomen Description: Positive: Soft Musculoskeletal: Positive: No Edema Neurological: Positive: Alert Psychological: Positive: Age Appropriate Behavior Skin: Negative: Rashes Eye Complaint Course/Dx - Course Course Of Treatment: PATIENT DENIES FOREIGN BODY SENSATION AND IS ABLE TO KEEP HIS EYE OPEN WITHOUT ANY DIFFICULTY OR DISCOMFORT. CLINICALLY DOES NOT SEEM TO HAVE A CORNEAL ABRASION OR FOREIGN BODY. GIVEN THE SIGNIFICANT IRRITATION IN HIS RIGHT EYE HAVE DEFERRED FLUORESCEIN STAINING TODAY. WILL GIVE ANTIBIOTIC OINTMENT FOR PATIENT TO USE 4 TIMES DAILY IN HIS RIGHT EYE. ADVISED THAT HE CALL OPHTHALMOLOGY FIRST THING IN THE MORNING FOR FOLLOW-UP APPOINTMENT. - Differential Dx/Diagnosis Provider Diagnosis: Chemosis of right conjunctiva Discharge - Sign-Out/Discharge Documenting (check all that apply): Patient Departure All imaging exams completed and their final reports reviewed: No Studies - Discharge Plan Condition: Stable Disposition: HOME Prescriptions: Erythromycin OPHTH.OINT* [Ilotycin OPHTH.OINT*] 1 applic RIGHT EYE QID #1 tube Patient Education Materials: Conjunctivitis (ED) Referrals: Jon Cartwright MD [Primary Care Provider] - If Needed Apollo Perales MD [Medical Doctor] - 1 Day Additional Instructions: CHEMOSIS CHEMOSIS IS A COLLECTION OF SEROUS FLUID WITHIN THE SUBSTANCE OF THE CONJUNCTIVA AND IS A NONSPECIFIC SIGN OF CONJUNCTIVAL IRRITATION. CHEMOSIS CAN BE SEEN IN A WIDE RANGE OF CONDITIONS AFFECTING THE EYE AND ORBIT, INCLUDING TRAUMA, ALLERGIC REACTION, INFLAMMATION, LOW PROTEIN STATES, AND INFECTION. USE THE ANTIBIOTIC OINTMENT 4 TIMES DAILY FOR [address] PERALES'S OFFICE TOMORROW MORNING FOR A FOLLOW-UP APPOINTMENT IN THE NEXT 1-2 DAYS. GO TO THE ER WITHOUT FAIL IF YOU DEVELOP VISUAL DISTURBANCES, NAUSEA, HEADACHE OR ANY OTHER CONCERNING SYMPTOMS. - Billing Disposition and Condition Condition: STABLE Disposition: Home
== END 2019-03-22 19:39 | disposition home or self-care (01) ==
LOC: UCEAST 18:21
DX: H11.421 Conjunctival edema, right eye (principal); I10 Essential (primary) hypertension; J45.909 Unspecified asthma, uncomplicated
CPT/HCPCS: 99212; A9270-GY; G0463

== ENCOUNTER 2019-06-08 18:20 | Emergency (ER) | payer OTHER ==
[2019-06-08 18:38] VITALS: BP 129/90
--- NOTE | 2019-06-08 18:55 | UC ---
Skin Complaint HPI - HPI Summary HPI Summary: 59 yo male presents with tick bites. He tells me that over the course of the last 7 days he has pulled off 6 ticks from his body. This morning he found one on his right leg that was engorged and had a red ring around it. He has had lyme disease in the past and is concerned this tick transmitted disease to him this time. He has no symptoms currently - History of Current Complaint Chief Complaint: UCSkin Time Seen by Provider: 06/08/19 18:42 Stated Complaint: tick BITE Hx Obtained From: Patient Onset/Duration: Sudden Onset Onset Severity: Mild Current Severity: Mild Pain Intensity: 3 Pain Scale Used: 0-10 Numeric - Allergy/Home Medications Allergies/Adverse Reactions: Allergies Allergy/AdvReac Type Severity Reaction Status Date / Time No Known Allergies Allergy Verified 06/08/19 18:38 Home Medications: Home Medications Coconut Oil 1 tab PO DAILY 06/08/19 [History Confirmed 06/08/19] Tumeric 1 tab PO DAILY 06/08/19 [History Confirmed 06/08/19] PMH/Surg Hx/FS Hx/Imm Hx - Additional Past Medical History Additional PMH: None - Surgical History Surgical History: Yes Surgery Procedure, Year, and Place: circumcision 2014-DETACHED RETINA FIXED IN 2013 (pt needs orbit xrays prior to mri to clear surgery/metallic body). REMOVAL OF POLYPS - Family History Known Family History: Positive: Cardiac Disease, Hypertension, Other - colon cancer - Social History Alcohol Use: None Substance Use Type: None Substance Use Comment - Amount & Last Used: every few days Smoking Status (MU): Never Smoked Tobacco Amount Used/How Often: 1/2 PDD X FEW YEARS Have You Smoked in the Last Year: No When Did the Patient Quit Smoking/Using Tobacco: 15 YEARS AGO - Immunization History Most Recent Influenza Vaccination: no Review of Systems All Other Systems Reviewed And Are Negative: No Constitutional: Positive: Negative Skin: Positive: Other - Tick bites Respiratory: Positive: Negative Cardiovascular: Positive: Negative Neurovascular: Positive: Negative Neurological: Positive: Negative Psychological: Positive: Negative Physical Exam - Summary Physical Exam Summary: GENERAL: NAD. WDWN. No pain distress. SKIN: Medial right calf: there is a 3.0cm diameter of moderate erythema with central 1mm area of superficial skin loss and clearing. No streaking, bleeding, or drainage. NECK: Supple. Nontender. No lymphadenopathy. CHEST: No accessory muscle use. Breathing comfortably and in no distress. CV: Pulses intact. Cap refill <2seconds NEURO: Alert. PSYCH: Age appropriate behavior. Triage Information Reviewed: Yes Vital Signs: Initial Vital Signs Temp 98.2 F 06/08/19 18:34 Pulse 67 06/08/19 18:34 Resp 18 06/08/19 18:34 BP 129/90 06/08/19 18:34 Pulse Ox 97 06/08/19 18:34 Vital Signs Reviewed: Yes Course/Dx - Course Course Of Treatment: Area appears consistent with bull's eye rash and is consistent with hx of recent tick bite and engorged tick. Pt prefers to start treatment for lyme now and will be rechecked if he develops any new or changing symptoms - Diagnoses Provider Diagnosis: Tick bite Discharge ED - Sign-Out/Discharge Documenting (check all that apply): Patient Departure All imaging exams completed and their final reports reviewed: No Studies - Discharge Plan Condition: Stable Disposition: HOME Prescriptions: DOXYcycline CAP(*) [DOXYcycline 100MG CAP(*)] 100 mg PO BID #42 cap Patient Education Materials: Lyme Disease (ED), Tick Bite (ED) Referrals: Jon Cartwright MD [Primary Care Provider] - Additional Instructions: If you develop a fever, shortness of breath, chest pain, new or worsening symptoms - please call your PCP or go to the ED immediately. - Billing Disposition and Condition Condition: STABLE Disposition: Home - Attestation Statements Provider Attestation: Per institutional requirements, I have reviewed the chart, however, I was not consulted specifically or made aware of this patient by the midlevel provider. I did not personally evaluate, interact with , or disposition this patient.
== END 2019-06-08 19:10 | disposition home or self-care (01) ==
LOC: UCEAST 18:20
DX: S80.861A Insect bite (nonvenomous), right lower leg, initial encounter (principal); W57.XXXA Bitten or stung by nonvenomous insect and other nonvenomous arthropods, initial encounter; Y92.9 Unspecified place or not applicable
CPT/HCPCS: 99212; G0463

== ENCOUNTER 2019-08-03 00:13 | Emergency (ER) | payer OTHER ==
--- NOTE | 2019-08-03 00:37 | ED ---
Lower Extremity - History of Current Complaint Chief Complaint: EDExtremityLower Stated Complaint: LEG PAIN, ABD PAIN, CHEST PAIN PER PT Time Seen by Provider: 08/03/19 00:36 Pain Intensity: 3 - Allergies/Home Medications Allergies/Adverse Reactions: Allergies Allergy/AdvReac Type Severity Reaction Status Date / Time No Known Allergies Allergy Verified 06/08/19 18:38 PMH/Surg Hx/FS Hx/Imm Hx Endocrine/Hematology History: Denies: Hx Diabetes, Hx Thyroid Disease Cardiovascular History: Reports: Hx Hypertension - HX OF- STATES NO MEDICATION FOR-STATES IMPROVED WITH LIFESTYLE CHANGE Denies: Hx Congestive Heart Failure, Hx Pacemaker/ICD Respiratory History: Reports: Hx Asthma - PRN INHALER, Hx Chronic Obstructive Pulmonary Disease (COPD) GI History: Reports: Other GI Disorders - present hematemesis abd paian Denies: Hx Ulcer History: Denies: Hx Renal Disease Musculoskeletal History: Reports: Hx Arthritis - BACK Sensory History: Denies: Hx Contacts or Glasses, Hx Hearing Aid Opthamlomology History: Denies: Hx Contacts or Glasses Neurological History: Reports: Hx Migraine - HX OF 15+YEARS AGO Psychiatric History: Denies: Hx Panic Disorder - Surgical History Surgery Procedure, Year, and Place: circumcision 2014-DETACHED RETINA FIXED IN 2013 (pt needs orbit xrays prior to mri to clear surgery/metallic body). REMOVAL OF POLYPS Hx Anesthesia Reactions: No Infectious Disease History: No Infectious Disease History: Reports: History Other Infectious Disease - herpes Denies: Hx Clostridium Difficile, Hx Hepatitis, Hx Human Immunodeficiency Virus (HIV), Hx of Known/Suspected MRSA, Hx Shingles, Hx Tuberculosis, Hx Known/ Suspected VRE, Hx Known/Suspected VRSA, Traveled Outside the [place] in Last 30 Days - Family History Known Family History: Positive: Cardiac Disease, Hypertension, Other - colon cancer - Social History Alcohol Use: None Substance Use Type: Reports: None Substance Use Comment - Amount & Last Used: every few days Smoking Status (MU): Never Smoked Tobacco Amount Used/How Often: 1/2 PDD X FEW YEARS Have You Smoked in the Last Year: No Physical Exam Vital Signs On Initial Exam: Initial Vitals Temp Pulse Resp BP Pulse Ox 97.7 F 64 14 150/95 96 08/03/19 00:14 08/03/19 00:14 08/03/19 00:14 08/03/19 00:14 08/03/19 00:14 Diagnostics - Vital Signs Vital Signs Temp Pulse Resp BP Pulse Ox 08/03/19 00:14 97.7 F 64 14 150/95 96 - Laboratory Lab Statement: Any lab studies that have been ordered have been reviewed, and results considered in the medical decision making process. Discharge ED - Discharge Plan Referrals: Jon Cartwright MD [Primary Care Provider] -
[2019-08-03] MEDS ORDERED: NS 0.9% 1000 ML** 1,000 ML IV ONE (00:44)
--- NOTE | 2019-08-03 00:45 | ED ---
HPI Chest Pain - HPI Summary HPI Summary: Patient complains of waking up out of sleep with bilateral leg cramping that would not relent, chest tightness. Patient states he took 3 pills of potassium , as he has had cramps before. Stated cramps resolved after about 20 minutes, but seem "likely want a clamp again". No active chest tightness at this time. No cardiac history. Denies fever, cough, sore throat, SOB, N/V/D, abdominal pain, change in urine, change in BM. Denies any recent decreasing endurance, SOB or chest pain with daily activity. Medical history is asthma, arthritis, HTN controlled by blood cell modifications. - History of Current Complaint Chief Complaint: EDExtremityLower Time Seen by Provider: 08/03/19 00:36 Hx Obtained From: Patient Onset/Duration: Started Minutes Ago Timing: Intermittent, Lasting Minutes Initial Severity: Severe Current Severity: None Pain Intensity: 3 Pain Scale Used: 0-10 Numeric Chest Pain Location: Mid Sternal Chest Pain Radiates: No Character: Tightness Aggravating Factor(s): Nothing Alleviating Factor(s): Nothing Associated Signs and Symptoms: Positive: Chest Pain - Allergy/Home Medications Allergies/Adverse Reactions: Allergies Allergy/AdvReac Type Severity Reaction Status Date / Time No Known Allergies Allergy Verified 06/08/19 18:38 PMH/Surg Hx/FS Hx/Imm Hx Endocrine/Hematology History: Denies: Hx Diabetes, Hx Thyroid Disease Cardiovascular History: Reports: Hx Hypertension - HX OF- STATES NO MEDICATION FOR-STATES IMPROVED WITH LIFESTYLE CHANGE Denies: Hx Congestive Heart Failure, Hx Pacemaker/ICD Respiratory History: Reports: Hx Asthma - PRN INHALER, Hx Chronic Obstructive Pulmonary Disease (COPD) GI History: Reports: Other GI Disorders - present hematemesis abd paian Denies: Hx Ulcer History: Denies: Hx Renal Disease Musculoskeletal History: Reports: Hx Arthritis - BACK Sensory History: Denies: Hx Contacts or Glasses, Hx Hearing Aid Opthamlomology History: Denies: Hx Contacts or Glasses EENT History: Denies: Hx Deafness Neurological History: Reports: Hx Migraine - HX OF 15+YEARS AGO Psychiatric History: Denies: Hx Panic Disorder - Surgical History Surgery Procedure, Year, and Place: circumcision 2014-DETACHED RETINA FIXED IN 2013 (pt needs orbit xrays prior to mri to clear surgery/metallic body). REMOVAL OF POLYPS Hx Anesthesia Reactions: No Infectious Disease History: No Infectious Disease History: Reports: History Other Infectious Disease - herpes Denies: Hx Clostridium Difficile, Hx Hepatitis, Hx Human Immunodeficiency Virus (HIV), Hx of Known/Suspected MRSA, Hx Shingles, Hx Tuberculosis, Hx Known/ Suspected VRE, Hx Known/Suspected VRSA, Traveled Outside the [place] in Last 30 Days - Family History Known Family History: Positive: Cardiac Disease, Hypertension, Other - colon cancer - Social History Alcohol Use: None Substance Use Type: Reports: None Substance Use Comment - Amount & Last Used: every few days Smoking Status (MU): Never Smoked Tobacco Amount Used/How Often: 1/2 PDD X FEW YEARS Have You Smoked in the Last Year: No Review of Systems Constitutional: Negative Eyes: Negative ENT: Negative Cardiovascular: Other Respiratory: Negative Gastrointestinal: Negative Genitourinary: Negative Musculoskeletal: Other Skin: Negative Neurological: Negative Psychological: Normal All Other Systems Reviewed And Are Negative: Yes Physical Exam - Summary Physical Exam Summary: No active cramps at this time. Bilateral lower extremities nontender to palpation. No evidence of erythema, ecchymosis, deformity, swelling. Regular rate and rhythm. Lung sounds clear to auscultation bilaterally. Triage Information Reviewed: Yes Vital Signs On Initial Exam: Initial Vitals Temp Pulse Resp BP Pulse Ox 97.7 F 64 14 150/95 96 08/03/19 00:14 08/03/19 00:14 08/03/19 00:14 08/03/19 00:14 08/03/19 00:14 Vital Signs Reviewed: Yes Appearance: Positive: Well-Appearing Skin: Positive: Warm Head/Face: Positive: Normal Head/Face Inspection Eyes: Positive: Normal Neck: Positive: Supple Respiratory/Lung Sounds: Positive: Clear to Auscultation Cardiovascular: Positive: Normal Abdomen Description: Positive: Nontender Musculoskeletal: Positive: Normal Neurological: Positive: Normal Psychiatric: Positive: Normal AVPU Assessment: Alert - [place] Coma Scale Best Eye Response: 4 - Spontaneous Best Motor Response: 6 - Obeys Commands Best Verbal Response: 5 - Oriented Coma Scale Total: 15 Procedures - Sedation Patient Received Moderate/Deep Sedation with Procedure: No Diagnostics - Vital Signs Vital Signs Temp Pulse Resp BP Pulse Ox 08/03/19 00:14 97.7 F 64 14 150/95 96 - Laboratory Result Diagrams: 08/03/19 00:52 08/03/19 00:52 Lab Statement: Any lab studies that have been ordered have been reviewed, and results considered in the medical decision making process. Chest Pain Course/Dx - Course Course Of Treatment: Patient complains of waking up out of sleep with bilateral leg cramping that would not relent, chest tightness. Patient states he took 3 pills of potassium, as he has had cramps before. Stated cramps resolved after about 20 minutes, but seem "likely want a clamp again". No active chest tightness at this time. No cardiac history. Denies fever, cough, sore throat, SOB, N/V/D, abdominal pain, change in urine, change in BM. Denies any recent decreasing endurance, SOB or chest pain with daily activity. Medical history is asthma, arthritis, HTN controlled by blood cell modifications. Patient bradycardic, vital signs otherwise within normal limits. Labs unremarkable. Patient given 1 L normal saline with no recurrence of cramps. EKG sinus bradycardia, heart rate 54, same as prior. Heart score 2. - Diagnoses Provider Diagnoses: Muscle cramps, Chest tightness Discharge ED - Sign-Out/Discharge Documenting (check all that apply): Patient Departure - Discharge Plan Condition: Stable Disposition: HOME Patient Education Materials: Leg Cramps (ED) Referrals: Jon Cartwright MD [Primary Care Provider] - Additional Instructions: Drink plenty of fluids to maintain hydration. Follow up with primary care. Return to the ED for any new or worsening symptoms. - Billing Disposition and Condition Condition: STABLE Disposition: Home
[2019-08-03 01:02] LABS: ABS Basophils 0.1 10^3/ul (0-0.2); ABS Eosinophils 0.2 10^3/ul (0-0.6); ABS Lymphocytes 2.4 10^3/ul (1.0-4.8); ABS Monocytes 0.5 10^3/ul (0-0.8); Eosinophil % 3.3 %; Hematocrit 38 % (42-52); Hemoglobin 13.4 g/dL (14.0-18.0); Lymphocyte % 39.4 %; Mean Corpuscular HGB Conc 35 g/dL (31-36); Mean Corpuscular Hemoglobin 32 pg (27-31); Mean Corpuscular Volume 91 fL (80-94); Mean Platelet Volume 7.8 fL (7.4-10.4); Nucleated Red Blood Cells % 0.1; Platelet Count 209 10^3/uL (150-450); Red Blood Count 4.24 10^6 /uL (4.18-5.48); Red Cell Distribution Width 13 % (10-15); White Blood Count 6.2 10^3/uL (3.5-10.8)
[2019-08-03 01:19] LABS: Albumin 3.9 g/dL (3.2-5.2); Albumin/Globulin Ratio 1.5 (1-3); BUN/Creatinine Ratio 23.5 (8-20); C Reactive Protein 2.01 mg/L (<8.01); EGFR Non-African American 97.5 (>60); Globulin 2.6 g/dL (2-4); Magnesium 1.9 mg/dL (1.9-2.7); Potassium 3.5 mmol/L (3.5-5.0); Total Bilirubin 0.4 mg/dL (0.2-1.0); Total Protein 6.5 g/dL (6.4-8.9)
[2019-08-03 02:20] VITALS: BP 142/99
== END 2019-08-03 02:11 | disposition home or self-care (01) ==
LOC: ED 00:13
DX: R25.2 Cramp and spasm (principal); R07.89 Other chest pain; J44.9 Chronic obstructive pulmonary disease, unspecified
CPT/HCPCS: 36415; 80053; 83690; 83735; 84484; 85025; 86140; 93005; 99282